=== PATIENT | female | born 1935 | race Caucasian/White ===

== ENCOUNTER 2019-12-06 14:17 | Outpatient (REF) | payer OTHER, SELFPAY ==
--- NOTE | 2019-12-07 11:17 | MHC.AU.P13 ---
Hearing Instrument Fitting- Adult- Binaural Date of Visit: 12/06/19 Hearing Instruments Dispensed: Right Ear: Language And Literature Division Chair: Phonak Model: AUDEO M70-R Serial Number: [id number] Warranty: 02/10/2023 Battery Size: Rechargeable Color: SAND BEIGE Plating Stripper: 2M Type of Dome: LARGE POWER Type of Wax Guard: CERUSHIELD Left Ear: Language And Literature Division Chair: Phonak Model: AUDEO M70-R Serial Number: [id number] Warranty: 02/10/2023 Battery Size: Rechargeable Color: SAND BEIGE Plating Stripper: 2M Type of Dome: LARGE POWER Type of Wax Guard: CERUSHIELD Summary of Fitting: Feedback marketing manager health communications run. Target gain set to 100%. Patient was pleased with the sound of the instruments and did not feel any additional adjustments were needed. Hearing aid care and maintenance were discussed and practiced. Patient was able to change wax guard and place instruments on her ears independently. Patient reports that she has an iPhone, but does not want it paired to her phone at this time. Recommendations: Hearing aid follow-up as needed. Diagnosis Code(s): Primary Diagnosis: H90.3 Bilateral Sensorineural Hearing Loss Services Performed: Hearing Instrument Services: BTE-Binaural- Level 3 Hearing Aid Dispensing: Binaural Dispensing Fee Fitting (Other): Fitting/Orientation/Checking of Hearing Aid Signature: Provider: Abraham Fuentes, [facility]
== END 2019-12-06 14:18 | disposition home or self-care (01) ==
LOC: HO.HAP 14:17
PROVIDERS: PCP Internal Medicine; Visit Provider Internal Medicine
DX: Z46.1 Encounter for fitting and adjustment of hearing aid (principal)
CPT/HCPCS: V5011; V5160; V5261

== ENCOUNTER 2020-10-30 22:50 | Inpatient (IN) | payer OTHER, SELFPAY ==
--- NOTE | ~2020-10-30 | CT_ITS ---
EXAMINATION: CT HEAD WITHOUT CONTRAST CLINICAL INFORMATION: Gait disturbance. COMPARISON: None. TECHNIQUE: Contiguous axial imaging was performed from the skull base to vertex without intravenous administration of contrast. This CT examination was performed using dose optimization techniques as appropriate, variously including the following: *Automated exposure control *Adjustment of mA and/or kV according to patient size (this includes techniques or standardized protocols for targeted exams where dose is matched to indication/reason for exam; i.e. extremities or head) *Use of iterative reconstruction technique DLP: 770 mGy-cm FINDINGS: There is no evidence of acute intracranial hemorrhage or edematous territorial infarction. A few foci of hypoattenuation in the periventricular and deep white matter are consistent with mild microangiopathy. There are chronic bilateral lacunar infarcts. Salgado-white matter differentiation is preserved. Proportional prominence of the ventricles and sulcal spaces. No evidence for obstructive hydrocephalus. No abnormal mass effect or midline shift. No extra-axial fluid collections. No acute soft tissue or osseous abnormalities. There is mild mucoperiosteal thickening of the paranasal sinuses. The mastoids are well aerated. CT/CT head/brain wo con IMPRESSION: No evidence of acute intracranial hemorrhage or edematous territorial infarction.
--- NOTE | ~2020-10-30 | CT_ITS ---
EXAMINATION: CT HEAD WITHOUT CONTRAST CLINICAL INFORMATION: TIA versus stroke. Altered mental status. COMPARISON: CT head October 31, 2020 TECHNIQUE: Contiguous axial imaging was performed from the skull base to vertex without intravenous administration of contrast. Coronal and sagittal reformatted images are performed at the CT scanner. [This CT examination was performed using dose optimization techniques as appropriate, variously including the following: *Automated exposure control *Adjustment of mA and/or kV according to patient size (this includes techniques or standardized protocols for targeted exams where dose is matched to indication/reason for exam; i.e. extremities or head) *Use of iterative reconstruction technique] DLP: 625 mGy-cm. FINDINGS: There is no evidence of acute intracranial hemorrhage or territorial infarction. No abnormal mass-effect or midline shift is seen. Salgado to white matter differentiation is well preserved. No extra-axial fluid collections are identified. There is generalized global volume loss. There is moderate prominence of the ventricles and the sulci . There is mild hypodensity of the periventricular white matter due to chronic small vessel ischemic disease. There are vascular calcifications of the internal carotid arteries bilaterally. There is no osseous abnormality. The mastoid air cells and visualized portions of the paranasal sinuses are well-aerated. CT/CT head/brain wo con IMPRESSION: No acute intracranial pathology.
--- NOTE | 2020-10-31 | ECG_ITS ---
Test Reason : on nortrityline Blood Pressure : / mmHG Vent. Rate : 083 BPM Atrial Rate : 083 BPM P-R Int : 200 ms QRS Dur : 084 ms QT Int : 360 ms P-R-T Axes : 077 -31 075 degrees QTc Int : 423 ms Normal sinus rhythm Left axis deviation Inferior infarct , age undetermined Abnormal ECG No previous ECGs available Referred By: Yaw Esparza Electronically Signed By:GENESIS GARLAND
[2020-10-31 06:00] VITALS: BP 157/68; PULSE 81; RESP 16; TEMP 36.6; O2SAT 96
--- NOTE | 2020-10-31 06:09 | PC.ADMIT ---
Admitted an 84 yrs. old,Pakistani speaking, female per stretcher accompanied by EMT STAFF.Patient is agitated when presented the CV to be signed.Pt said I'm not signing anything .EMT then called her son to talk to his mother and able to convinced her to sign the CV in the ER.Upon admission Pt. is alert and oriented to self and person but not to place. Patient is irritable.patient was initially assessed on 10/23/2020 at [facility] ED.she presented via ambulance due to altered mental status per the visiting nurse.Patient was convinced that her son,who lives in [place], was at her apt.Patient has past medical history of back pain, CKD,STAGE 3,Cystocele,Failed back syndromelumbar, hypercholesteremia,HTN,Osteoporosis and Sacro- iliac pain.Pt, has a bruise on her L. buttocks and L. upper thigh.and slightly red feet.No s/sx of SOB,Lung sounds clear and +bowel sounds x4 quadrants.Pt. denies SI/HI/AH/VH. patient complains of pain on her lower back.Pt. is independent on adl s,cueing in set-up.Pt.has BM yesterday. notified of admission and made orders.Patient has a skin tear on her L.hand slightly bleeding cleansed w/ nss applied w/ dressing and tegaderm.PT.needs 1 assist w/ walker in ambulation,pt. is unsteady at times.
[2020-10-31 07:00] VITALS: BMI 27.6
[2020-10-31 07:11] LABS: MANUAL DIFF FLAG NO
[2020-10-31 07:13] LABS: Basophils Absolute Auto 0.1 X10*3/uL (0.0-0.2); Basophils Percent Auto 0.4 % (0-2); Eosinophils Absolute Auto 0.2 X10*3/uL (0.0-0.4); Eosinophils Percent Auto 1.7 % (0-4); Hematocrit 37.1 % (37-47); Hemoglobin 12.4 g/dl (12.0-16.0); Imm Gran Abs Auto 0.07 X10*3/uL (0.00-0.03); Imm Gran Pct Auto 0.5 % (0.0-0.4); Lymphocytes Percent Auto 15.3 % (20-40); Mean Corpuscular HGB Conc 33.4 g/dl (31.0-35.0); Mean Corpuscular Hemoglobin 30.8 pg (27.0-33.0); Mean Corpuscular Volume 92.3 fL (80-98); Mean Platelet Volume 11.9 fL (9.4-12.3); Monocytes Percent Auto 7.7 % (2-11); Neutrophils Absolute Auto 9.8 X10*3/uL (2.0-8.3); Neutrophils Percent Auto 74.4 % (45-73); Platelet Count 212 X10*3/uL (160-400); Red Blood Count 4.02 X10*6/uL (4.20-5.50); White Blood Count 13.1 X10*3/uL (4.8-10.8)
[2020-10-31 07:32] LABS: Alanine Aminotransferase 14 U/L (0-31); Albumin Level 3.6 g/dL (3.5-5.0); Alkaline Phosphatase 84 U/L (39-117); Anion Gap 15 (12-20); Aspartate Amino Transferase 13 U/L (5-31); Bilirubin Total 0.4 mg/dL (0.0-1.0); Blood Urea Nitrogen 29 mg/dL (9-16); Calcium 9.8 mg/dL (8.4-10.2); Carbon Dioxide 23 mmol/L (22-29); Chloride 104 mmol/L (96-108); Cholesterol 104 mg/dL; Estimated Glomerular Filt Rate 34; Glucose Fasting 97 mg/dL (60-99); HDL Cholesterol 33 mg/dL; LDL Cholesterol Calculated 52 mg/dl; Potassium 4.5 mmol/L (3.3-5.1); Sodium 137 mmol/L (135-145); Total Protein 6.1 g/dL (6.5-8.0); Triglycerides 97 mg/dL
[2020-10-31 08:11] LABS: Folate 5.4 ng/mL (> or = 4.0); Vitamin B12 292 pg/mL (200-900)
[2020-10-31 09:57] VITALS: BP 157/68; PULSE 81; O2SAT 96
[2020-10-31] MEDS: Acetaminophen 325 MG TABLET 650 MG PO (10:17)
[2020-10-31 10:46] VITALS: BP 136/62; PULSE 85
[2020-10-31] MEDS: PARoxetine HCL 40 MG TABLET PO (10:46)
[2020-10-31] MEDS: Magnesium Oxide 400 MG TABLET 800 MG PO (10:46)
[2020-10-31] MEDS: lisinopriL 10 MG TABLET PO (10:46)
[2020-10-31 10:47] VITALS: BP 136/62; PULSE 85
[2020-10-31] MEDS: Metoprolol Succinate ER 50 MG TAB.ER.24H PO (10:47)
[2020-10-31] MEDS: Docusate Sodium 100 MG CAPSULE PO ×2 (10:47→21:03)
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
[2020-10-31] MEDS: TiZANidine HCL 4 MG TABLET PO (11:13)
--- NOTE | 2020-10-31 12:01 | HO.PM.IMCN ---
History of Present Illness Data of Consult Service Date: 10/31/20 Primary Care Provider: Unknown Physician HPI This is an 84-year-old female with history of of hypertension, hyperlipidemia, CKD 3, chronic back pain, recent cerebrovascular accident who presents to the hospital [place] with altered mental status. She was previously admitted to the hospital 10/20 through 10/22 with altered mentation and was convinced that her son had flown all the way out from [place] and was sitting in her apartment talking to her, which is not true. Her work-up revealed an acute right thalamic infarct. She was discharged on aspirin and atorvastatin. Her tizanidine dose was decreased with recommendation to taper over time. She returned the next day to the emergency department as [facility] was concerned about ongoing altered mental status, delusions and possible hallucinations. She became agitated while in the ER and scraped her left forearm on the bed rail. While she was in the ER she was hypertensive but vitals otherwise stable. Psychiatry was consulted and geriatric psychiatry admission was recommended for mood stabilization and she is admitted for further care and is now admitted to [place]. When talking to her, she sounds coherent and only concern about going home and putting on her own clothess. She states that she has chronic back paina and has had at least 5 surgery and uses walker all the time. The following is a list of [facility] Medications Acetaminophen (Tylenol 325 mg oral tablet)??See Instructions??as needed??Pt takes at bedtime??for pain? Aspirin (aspirin 81 mg oral tablet, chewable)??81??Milligram??1??tablet??By Mouth??Daily??for 90??Days? Atorvastatin (atorvastatin 40 mg oral tablet)??1??tab(s)??40??Milligram??By Mouth??Daily at bedtime??for 7??Days? Calcium And Vitamin D Combination (Calcium 600 +D)??1??tab(s)??By Mouth??3 times a day? Cetirizine (cetirizine 10 mg oral tablet)??1??tab(s)??10??Milligram??By Mouth??Daily? Docusate (Dulcolax Stool Softener)??100??Milligram??By Mouth??2 times a day? Lisinopril (lisinopril 20 mg oral tablet)??10??Milligram??0.5??tablet??By Mouth??Daily??for 90??Days? Lorazepam (lorazepam 1 mg oral tablet)??1??tab(s)??1??Milligram??By Mouth??Daily at bedtime? Magnesium Oxide (magnesium oxide 400 mg oral tablet)??2??tab(s)??800??Milligram??By Mouth??Daily at bedtime? Melatonin (Melatonin 5 mg oral tablet)??1??tab(s)??5??Milligram??By Mouth??Daily at bedtime??as needed??for insomnia? Metoprolol (metoprolol 50 mg oral tablet)??50??Milligram??1??tablet??By Mouth??2 times a day? Nortriptyline (nortriptyline 10 mg oral capsule)??4??capsule??40??Milligram??By Mouth??Daily??for 90??Days? Pantoprazole??Daily? Paroxetine (PARoxetine 40 mg oral tablet)??40??Milligram??1??tablet??By Mouth??Daily? Senna (Senna 8.6 mg oral tablet)??17.2??Milligram??2??tab(s)??By Mouth??Daily at bedtime??as needed??for constipation? Tizanidine (tiZANidine 4 mg oral tablet)??4??Milligram??1??tablet??By Mouth??2 times a day??as needed??for 14??Days??Spasm? ? 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 HLD (hyperlipidemia) HTN (hypertension) Osteopathia Pertinent family history: Fther of emphasema and had problem with alcohol no report on mother Surgical History History of hysterectomy S/P appendectomy Social History Advance Directives: No Advance Directives Information Provided: Yes Meds Allergies Allergy/AdvReac Type Severity Reaction Status Date / Time acetaminophen [From Percocet] Allergy Unknown Verified 10/31/20 06:24 baclofen Allergy Unknown Verified 10/31/20 06:24 oxycodone Allergy Unknown Verified 10/31/20 06:23 Active Medications: Current Medications Acetaminophen (Acetaminophen 325 Mg Tablet) 650 mg PO Q6H PRN PRN Reason: Headache/Pain Mild Scale (1-3) Last Admin: 10/31/20 10:17 Dose: 650 mg Documented by: Al Hydroxide/Mg Hydroxide (Magnesium Hydrox/Alum Hydrox 30 Ml Oral.Susp) 30 ml PO Q6H PRN PRN Reason: Heartburn/Nausea Atorvastatin Calcium (Atorvastatin Calcium 40 Mg Tablet) 40 mg PO BEDTIME [facility] Docusate Sodium (Docusate Sodium 100 Mg Capsule) 100 mg PO BID [facility] Last Admin: 10/31/20 10:47 Dose: 100 mg Documented by: Hydroxyzine HCl (Hydroxyzine Hcl 25 Mg Tablet) 25 mg PO BEDTIME PRN PRN Reason: Anxiety Lisinopril (Lisinopril 10 Mg Tablet) 10 mg PO DAILY [facility]; Protocol Last Admin: 10/31/20 10:46 Dose: 10 mg Documented by: Lorazepam (Lorazepam 0.5 Mg Tablet) 0.5 mg PO BEDTIME PRN PRN Reason: Insomnia Lorazepam (Lorazepam 1 Mg Tablet) 1 mg PO BEDTIME [facility] Magnesium Hydroxide (Milk Of Magnesia 30 Ml Oral.Susp) 30 ml PO DAILY PRN PRN Reason: Constipation Magnesium Oxide (Magnesium Oxide 400 Mg Tablet) 800 mg PO DAILY [facility] Last Admin: 10/31/20 10:46 Dose: 800 mg Documented by: Metoprolol Succinate (Metoprolol Succinate Er 50 Mg Tab.Er.24h) 50 mg PO DAILY [facility]; Protocol Last Admin: 10/31/20 10:47 Dose: 50 mg Documented by: Nortriptyline HCl (Nortriptyline Hcl 10 Mg Capsule) 40 mg PO BEDTIME [facility] Paroxetine HCl (Paroxetine Hcl 40 Mg Tablet) 40 mg PO DAILY [facility] Last Admin: 10/31/20 10:46 Dose: 40 mg Documented by: Senna (Sennosides 8.6 Mg Tablet) 8.6 mg PO BEDTIME PRN PRN Reason: Constipation Tizanidine HCl (Tizanidine Hcl 4 Mg Tablet) 4 mg PO BID PRN PRN Reason: Muscle Spasm Last Admin: 10/31/20 11:13 Dose: 4 mg Documented by: Home Medications Medication Instructions Recorded Confirmed Last Taken Type Vitamin D3 600 PO DAILY 10/31/20 Unknown History atorvastatin 40 mg tablet 40 mg PO BEDTIME 10/31/20 10/31/20 Unknown History docusate sodium 100 mg capsule 100 mg PO BID 10/31/20 10/31/20 Unknown History (Colace) lisinopril 10 mg tablet 10 mg PO DAILY 10/31/20 10/31/20 Unknown History lorazepam 1 mg tablet 1 mg PO BEDTIME 10/31/20 10/31/20 Unknown History magnesium oxide 800 mg PO DAILY 10/31/20 10/31/20 Unknown History metoprolol succinate 50 mg 50 mg PO DAILY 10/31/20 10/31/20 Unknown History tablet,extended release 24 hr nortriptyline See Rx Instructions .ROUTE .COMPLEX 10/31/20 10/31/20 Unknown History pantoprazole 40 mg tablet,delayed 40 mg PO DAILY 10/31/20 10/31/20 Unknown History release paroxetine HCl 40 mg tablet 40 mg PO DAILY 10/31/20 10/31/20 Unknown History sennosides 8.6 mg tablet (senna) 8.6 mg PO BEDTIME PRN MDD 2tabs 10/31/20 10/31/20 Unknown History Physical Exam Vital Signs and Narrative: Vital Signs: Last Vital Signs Temp 97.8 F 10/31/20 06:00 Pulse 85 10/31/20 10:47 Resp 16 10/31/20 06:00 BP 136/62 10/31/20 10:47 Pulse Ox 96 10/31/20 09:57 Constitutional: Alert and oriented x3, in no acute distress, anoyed and wants to go home Head: Normocephalic, atraumatic Eyes: EOMI, no pallor or scleral icterus Respiratory: Clear to auscultation b/l without wheezes, rales or rhonchi. No use of accessory muscles. Cardiovascular: Regular rate and rhythm, no rubs, murmurs or gallops. No JVD. Gastrointestinal: Abdomen soft, non-tender, non-distended. Normal bowel sounds. Genitourinary: No costovertebral angle tenderness. No suprapubic tenderness. Extremities: No lower extremity pitting edema. No cyanosis or clubbing. Neurologic: AAOx3, Cranial nerves II-XII grossly intact. Moves all 4 extremities spontaneously. Sensation intact bilaterally.? Skin: left forearm with wrapped with white bandage Musculoskeletal: normal strenght Psychiatric: confrontational, easily angry, agitated but no delusion or hallucination dur my eval Results Labs CBC and Chem 7: 10/31/20 06:52 10/31/20 06:52 Imaging Radiologist's Impressions: Impressions Head CT 10/31/20 10:55 IMPRESSION: No evidence of acute intracranial hemorrhage or edematous territorial infarction. Assessment and Plan (1) HTN (hypertension): Status: Acute (2) HLD (hyperlipidemia): Status: Acute (3) CKD stage 3 due to type 1 diabetes mellitus: Status: Acute 84/F with recent hosptalization for stroke and now admitted to Psych due delusional thought. 1/HTN--She is to be on Lisinopril 20 daily and Metoprolol 50 bid, these should be continue 2/HLD--to continue Lipitor 40 qhs 3/CKD 3--stable 4/Recent CVA--BP control, statin, and Asprin 5/Psychiatric issues, care by Psych 6/Leukocytosis--no sings of infection, likely reactive, monitor
[2020-10-31] MEDS: Aspirin 81 MG TAB.CHEW PO (13:57)
[2020-10-31 18:00] VITALS: BP 134/67; PULSE 86; RESP 18; TEMP 37; O2SAT 98
[2020-10-31] MEDS: LORazepam 1 MG TABLET PO (21:03)
[2020-10-31] MEDS: Nortriptyline HCl 10 MG CAPSULE 40 MG PO (21:03)
[2020-10-31] MEDS: Atorvastatin Calcium 40 MG TABLET PO (21:04)
[2020-11-01] MEDS: Acetaminophen 325 MG TABLET 650 MG PO ×3 (01:00→23:43)
[2020-11-01 06:00] VITALS: BP 100/54; PULSE 102; TEMP 36.6; O2SAT 95
[2020-11-01 07:38] LABS: Appearance Urine CLEAR; Color Urine YELLOW; Glucose Urine UA NEG (NEG); Leukocyte Esterase Urine NEG (NEG); Nitrite Urine NEG (NEG); PH 5.5 (5.0-8.0); Urine Blood NEG (NEG); Urine Ketones NEG (NEG); Urine Protein NEG (NEG-TRACE)
[2020-11-01] MEDS: Aspirin 81 MG TAB.CHEW PO (08:03)
[2020-11-01] MEDS: lisinopriL 10 MG TABLET PO (08:03)
[2020-11-01] MEDS: PARoxetine HCL 40 MG TABLET PO (08:03)
[2020-11-01] MEDS: Magnesium Oxide 400 MG TABLET 800 MG PO (08:03)
[2020-11-01] MEDS: Metoprolol Succinate ER 50 MG TAB.ER.24H PO (08:03)
[2020-11-01] MEDS: Docusate Sodium 100 MG CAPSULE PO ×2 (08:05→19:27)
--- NOTE | 2020-11-01 11:45 | P.PNPSI_ITS ---
Subjective Subjective Date of Service: 11/01/20 Reason For Visit: UNSPECIFIED MENTAL DISORDER Interim History: Pt mostly in bed, reports penitentiary depressed mood, anhedonia, feeling hopeless. She reports intermittent suicidal thoughts but denies any plan or intent to hurt herself. She reports is she kills herself her children would be the most affected by it. She was oriented to month, year, to some extend situation not to place, did know this was psychiatric hospital but thought we we re in [place]. She reports fair sleep and appetite. we discussed concern of two highly anticholinergic antidepressants paxil and nortriptyline. Pt reports taking nortriptyline for headaches. She is not sure if paxil helping. She reports no other medication trials but sure if this is accurate. Medication Compliance: Yes Mental Status Exam Mental Status Exam Narrative: Appearance: in bed, poor hygiene in NAD Behavior: cooperative psychomotor:no agitation or retardation noted Speech:clear, normal rate, soft tone, spontaneous Thought process:mostly linear Thought content:no signs of psychosis, feeling hopeless, depressed Mood: depressed Affect: blunted, congruent SI:passive denies intent and plan HI:none VH/AH:denies Delusions:no overt delusional content reported Insight/judgment:fair x 3 Memory/cog: alert, oriented to month, year, place, knows this is psych hospital, did not know city or name of hospital. Consider doing MOCA once mood improves Diagnostics Vital Signs (24Hr): Vital Signs - 24 hr 10/31/20 18:00 11/01/20 06:00 Temperature 98.6 F 97.8 F Pulse Rate 86 102 H Respiratory Rate 18 Blood Pressure 134/67 100/54 L Pulse Oximetry 98 95 Body Mass Index 27.6 Labs Results: 10/31/20 06:52 10/31/20 06:52 Labs: Laboratory Results - last 48 hr 10/31/20 10/31/20 10/31/20 06:52 06:52 06:52 WBC 13.1 H RBC 4.02 L Hgb 12.4 Hct 37.1 MCV 92.3 MCH 30.8 MCHC 33.4 RDW 13.0 Plt Count 212 MPV 11.9 Immature Gran % (Auto) 0.5 H Neut % (Auto) 74.4 H Lymph % (Auto) 15.3 L [place] % (Auto) 7.7 Eos % (Auto) 1.7 Baso % (Auto) 0.4 Lymph # (Auto) 2.0 [place] # (Auto) 1.0 Eos # (Auto) 0.2 Baso # (Auto) 0.1 Abs Immat Gran (auto) 0.07 H Absolute Neuts (auto) 9.8 H Absolute Nucleated RBC 0.000 Nucleated RBC % (auto) 0.0 Sodium 137 Potassium 4.5 Chloride 104 Carbon Dioxide 23 Anion Gap 15 BUN 29 H Creatinine 1.47 H Estim Creat Clear Calc TNP Estimated GFR 34 Fasting Glucose 97 Calcium 9.8 Total Bilirubin 0.4 AST 13 ALT 14 Alkaline Phosphatase 84 Total Protein 6.1 L Albumin 3.6 Triglycerides 97 Cholesterol 104 LDL Cholesterol, Calc 52 HDL Cholesterol 33 Vitamin B12 292 Folate 5.4 TSH 1.00 Urine Color Urine Appearance Urine pH Ur Specific [place] Urine Protein Urine Glucose (UA) Urine Ketones Urine Blood Urine Nitrite Ur Leukocyte Esterase 11/01/20 07:00 WBC RBC Hgb Hct MCV MCH MCHC RDW Plt Count MPV Immature Gran % (Auto) Neut % (Auto) Lymph % (Auto) [place] % (Auto) Eos % (Auto) Baso % (Auto) Lymph # (Auto) [place] # (Auto) Eos # (Auto) Baso # (Auto) Abs Immat Gran (auto) Absolute Neuts (auto) Absolute Nucleated RBC Nucleated RBC % (auto) Sodium Potassium Chloride Carbon Dioxide Anion Gap BUN Creatinine Estim Creat Clear Calc Estimated GFR Fasting Glucose Calcium Total Bilirubin AST ALT Alkaline Phosphatase Total Protein Albumin Triglycerides Cholesterol LDL Cholesterol, Calc HDL Cholesterol Vitamin B12 Folate TSH Urine Color YELLOW Urine Appearance CLEAR Urine pH 5.5 Ur Specific [place] 1.010 Urine Protein NEG Urine Glucose (UA) NEG Urine Ketones NEG Urine Blood NEG Urine Nitrite NEG Ur Leukocyte Esterase NEG Imaging Radiology Impressions: ITS Impressions Head CT 10/31/20 10:55 IMPRESSION: No evidence of acute intracranial hemorrhage or edematous territorial infarction. Medications Medications Current Medications Acetaminophen (Acetaminophen 325 Mg Tablet) 650 mg PO Q6H PRN PRN Reason: Headache/Pain Mild Scale (1-3) Last Admin: 11/01/20 12:42 Dose: 650 mg Documented by: Al Hydroxide/Mg Hydroxide (Magnesium Hydrox/Alum Hydrox 30 Ml Oral.Susp) 30 ml PO Q6H PRN PRN Reason: Heartburn/Nausea Aspirin (Aspirin 81 Mg Tab.Chew) 81 mg PO DAILY [facility] Last Admin: 11/01/20 08:03 Dose: 81 mg Documented by: Atorvastatin Calcium (Atorvastatin Calcium 40 Mg Tablet) 40 mg PO BEDTIME [facility] Last Admin: 10/31/20 21:04 Dose: 40 mg Documented by: Docusate Sodium (Docusate Sodium 100 Mg Capsule) 100 mg PO BID [facility] Last Admin: 11/01/20 08:05 Dose: 100 mg Documented by: Hydroxyzine HCl (Hydroxyzine Hcl 25 Mg Tablet) 25 mg PO BEDTIME PRN PRN Reason: Anxiety Lisinopril (Lisinopril 10 Mg Tablet) 10 mg PO DAILY [facility]; Protocol Last Admin: 11/01/20 08:03 Dose: 10 mg Documented by: Loperamide HCl (Loperamide Hcl 2 Mg Capsule) 2 mg PO Q4H PRN PRN Reason: Diarrhea Lorazepam (Lorazepam 0.5 Mg Tablet) 0.5 mg PO BEDTIME PRN PRN Reason: Insomnia Lorazepam (Lorazepam 1 Mg Tablet) 1 mg PO BEDTIME [facility] Last Admin: 10/31/20 21:03 Dose: 1 mg Documented by: Magnesium Hydroxide (Milk Of Magnesia 30 Ml Oral.Susp) 30 ml PO DAILY PRN PRN Reason: Constipation Magnesium Oxide (Magnesium Oxide 400 Mg Tablet) 800 mg PO DAILY [facility] Last Admin: 11/01/20 08:03 Dose: 800 mg Documented by: Metoprolol Succinate (Metoprolol Succinate Er 50 Mg Tab.Er.24h) 50 mg PO DAILY [facility]; Protocol Last Admin: 11/01/20 08:03 Dose: 50 mg Documented by: Nortriptyline HCl (Nortriptyline Hcl 10 Mg Capsule) 40 mg PO BEDTIME [facility] Last Admin: 10/31/20 21:03 Dose: 40 mg Documented by: Paroxetine HCl (Paroxetine Hcl 40 Mg Tablet) 40 mg PO DAILY [facility] Last Admin: 11/01/20 08:03 Dose: 40 mg Documented by: Senna (Sennosides 8.6 Mg Tablet) 8.6 mg PO BEDTIME PRN PRN Reason: Constipation Tizanidine HCl (Tizanidine Hcl 4 Mg Tablet) 4 mg PO BID PRN PRN Reason: Muscle Spasm Last Admin: 10/31/20 11:13 Dose: 4 mg Documented by: Allergies Allergies Allergy/AdvReac Type Severity Reaction Status Date / Time acetaminophen [From Percocet] Allergy Unknown Verified 10/31/20 06:24 baclofen Allergy Unknown Verified 10/31/20 06:24 oxycodone Allergy Unknown Verified 10/31/20 06:23 Assessment & Plan Assessment & Plan (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): Status: Acute (2) HTN (hypertension): Status: Acute Code(s): I10 - Essential (primary) hypertension (3) CKD stage 3 due to type 1 diabetes mellitus: Status: Acute Code(s): E10.22 - Type 1 diabetes mellitus with diabetic chronic kidney disease; N18.30 - Chronic kidney disease, stage 3 unspecified (4) Cognitive and neurobehavioral dysfunction: Status: Acute Code(s): F09 - Unspecified mental disorder due to known physiological condition; F07.89 - Other personality and behavioral disorders due to known physiological condition Assessment and Plan: Patient admitted in the context of increased irritability depression and recent paranoia for the past [address] scan with lacunar infarcts . Possible agitation from medication effect and chronic pain possibly to tizanidine. Stroke symptoms a minor with no objective findings and no clear abnormality on the CT scan. The patient symptoms have resolved and she is alert and oriented at this time. No further neurological workup is necessary. Assessment and Plan: PLAN 1. concern about two highly anticholinergic antidepressants- pt does not appear more reliable despatching and receiving clerk, but thinks paxil taking it for one year and thinks is not helping. Nortriptyline for migraines. Pending further collateral by OP provider- Etienne Thompson. will decrease paxil, continue nortriptyline, may adjust dose of nortriptyline or switch to another antidepressant all together. Greater than 50% of the session was spent on counseling and/or coordination of care Reason for contiued inpatient stay Substantial Risk for: inability to function
--- NOTE | 2020-11-01 15:18 | PM.NEUROCN ---
History of Present Illness Data of Consult Service Date: 11/01/20 Primary Care Provider: Unknown Physician HPI Reason for consult: Altered mental status and agitation This is a 84-year-old woman with a history of mood disorder and depression with a history of hypertension, hyperlipidemia, chronic kidney disease. Failed back syndrome with 5 back surgeries in [place] who was admitted to [facility] a couple weeks ago and was found to have a right thalamic infarct. She is now admitted with some agitation and altered mental status Review of Systems Review of Systems: Patient relates a history of hypertension back surgeries. Complains of shoulder and back pain did have a number of falls at home using a walker. No complaints of chest pain or shortness of breath. 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 HLD (hyperlipidemia) HTN (hypertension) Osteopathia Family History Pertinent family history: Fther of emphasema and had problem with alcohol no report on mother Surgical History Surgical History History of hysterectomy S/P appendectomy Social History Social History Household Members: None Housing: House Do you presently have visiting nurse or other home services: Yes Patient Tobacco Use Status: Never used Tobacco Second Hand Smoke Exposure: No Use of substances other than those prescribed or required for medical reasons: No Currently Displaying Signs/Symptoms of Drug Intoxication Withdrawal: No Have you been hit, kicked, punched, or otherwise hurt by someone within the past year? If so, by whom?: No Do you feel safe in your current relationship?: No Current Relationship Is there a partner from a previous relationship who is making you feel unsafe now?: No Are you made to feel afraid or neglected: No Advance Directives: No Advance Directives Information Provided: Yes Do you have thoughts of harming others: None Do you have a plan to hurt others: No Plan Recently lost weight without trying: No Nutrition Risks: No Nutritional Risk Patient : No : No Poor oral hygiene: No service: No Sexual orientation: Straight/Heterosexual Meds Allergies Allergy/AdvReac Type Severity Reaction Status Date / Time acetaminophen [From Percocet] Allergy Unknown Verified 10/31/20 06:24 baclofen Allergy Unknown Verified 10/31/20 06:24 oxycodone Allergy Unknown Verified 10/31/20 06:23 Active Medications: Current Medications Acetaminophen (Acetaminophen 325 Mg Tablet) 650 mg PO Q6H PRN PRN Reason: Headache/Pain Mild Scale (1-3) Last Admin: 11/01/20 12:42 Dose: 650 mg Documented by: Al Hydroxide/Mg Hydroxide (Magnesium Hydrox/Alum Hydrox 30 Ml Oral.Susp) 30 ml PO Q6H PRN PRN Reason: Heartburn/Nausea Aspirin (Aspirin 81 Mg Tab.Chew) 81 mg PO DAILY [facility] Last Admin: 11/01/20 08:03 Dose: 81 mg Documented by: Atorvastatin Calcium (Atorvastatin Calcium 40 Mg Tablet) 40 mg PO BEDTIME [facility] Last Admin: 10/31/20 21:04 Dose: 40 mg Documented by: Docusate Sodium (Docusate Sodium 100 Mg Capsule) 100 mg PO BID [facility] Last Admin: 11/01/20 08:05 Dose: 100 mg Documented by: Hydroxyzine HCl (Hydroxyzine Hcl 25 Mg Tablet) 25 mg PO BEDTIME PRN PRN Reason: Anxiety Lisinopril (Lisinopril 10 Mg Tablet) 10 mg PO DAILY [facility]; Protocol Last Admin: 11/01/20 08:03 Dose: 10 mg Documented by: Loperamide HCl (Loperamide Hcl 2 Mg Capsule) 2 mg PO Q4H PRN PRN Reason: Diarrhea Lorazepam (Lorazepam 0.5 Mg Tablet) 0.5 mg PO BEDTIME PRN PRN Reason: Insomnia Lorazepam (Lorazepam 1 Mg Tablet) 1 mg PO BEDTIME [facility] Last Admin: 10/31/20 21:03 Dose: 1 mg Documented by: Magnesium Hydroxide (Milk Of Magnesia 30 Ml Oral.Susp) 30 ml PO DAILY PRN PRN Reason: Constipation Magnesium Oxide (Magnesium Oxide 400 Mg Tablet) 800 mg PO DAILY [facility] Last Admin: 11/01/20 08:03 Dose: 800 mg Documented by: Metoprolol Succinate (Metoprolol Succinate Er 50 Mg Tab.Er.24h) 50 mg PO DAILY [facility]; Protocol Last Admin: 11/01/20 08:03 Dose: 50 mg Documented by: Nortriptyline HCl (Nortriptyline Hcl 10 Mg Capsule) 40 mg PO BEDTIME [facility] Last Admin: 10/31/20 21:03 Dose: 40 mg Documented by: Paroxetine HCl (Paroxetine Hcl 40 Mg Tablet) 40 mg PO DAILY [facility] Last Admin: 11/01/20 08:03 Dose: 40 mg Documented by: Senna (Sennosides 8.6 Mg Tablet) 8.6 mg PO BEDTIME PRN PRN Reason: Constipation Tizanidine HCl (Tizanidine Hcl 4 Mg Tablet) 4 mg PO BID PRN PRN Reason: Muscle Spasm Last Admin: 10/31/20 11:13 Dose: 4 mg Documented by: Home Medications Medication Instructions Recorded Confirmed Last Taken Type Vitamin D3 600 PO DAILY 10/31/20 Unknown History atorvastatin 40 mg tablet 40 mg PO BEDTIME 10/31/20 10/31/20 Unknown History docusate sodium 100 mg capsule 100 mg PO BID 10/31/20 10/31/20 Unknown History (Colace) lisinopril 10 mg tablet 10 mg PO DAILY 10/31/20 10/31/20 Unknown History lorazepam 1 mg tablet 1 mg PO BEDTIME 10/31/20 10/31/20 Unknown History magnesium oxide 800 mg PO DAILY 10/31/20 10/31/20 Unknown History metoprolol succinate 50 mg 50 mg PO DAILY 10/31/20 10/31/20 Unknown History tablet,extended release 24 hr nortriptyline See Rx Instructions .ROUTE .COMPLEX 10/31/20 10/31/20 Unknown History pantoprazole 40 mg tablet,delayed 40 mg PO DAILY 10/31/20 10/31/20 Unknown History release paroxetine HCl 40 mg tablet 40 mg PO DAILY 10/31/20 10/31/20 Unknown History sennosides 8.6 mg tablet (senna) 8.6 mg PO BEDTIME PRN MDD 2tabs 10/31/20 10/31/20 Unknown History Physical Exam Vital Signs: Vital Signs: Last Vital Signs Temp 97.8 F 11/01/20 06:00 Pulse 102 H 11/01/20 06:00 Resp 18 10/31/20 18:00 BP 100/54 L 11/01/20 06:00 Pulse Ox 95 11/01/20 06:00 Body Mass Index 27.6 Neuro: Other: She is currently pleasant, cooperative, alert and oriented with normal cognittive functions. She's oriented x3. Nonfocal examination with no facial asymmetry drift or limb weakness. Plantar response are flexor. 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 scan with lacunar infarcts . Possible agitation from medication effect and chronic pain possibly to tizanidine. Stroke symptoms a minor with no objective findings and no clear abnormality on the CT scan. The patient symptoms have resolved and she is alert and oriented at this time. No further neurological workup is necessary. Procedures Date of Service Date of Service: 11/01/20
[2020-11-01] MEDS: TiZANidine HCL 4 MG TABLET PO ×2 (16:52→23:43)
[2020-11-01] MEDS: Nortriptyline HCl 10 MG CAPSULE 40 MG PO (19:26)
[2020-11-01] MEDS: Atorvastatin Calcium 40 MG TABLET PO (19:26)
[2020-11-01] MEDS: LORazepam 1 MG TABLET PO (19:27)
[2020-11-02 08:22] VITALS: BP 152/69; PULSE 90; RESP 18; TEMP 36.2; O2SAT 97
[2020-11-02] MEDS: TiZANidine HCL 4 MG TABLET PO (08:22)
[2020-11-02] MEDS: PARoxetine HCL 20 MG TABLET PO (08:22)
[2020-11-02] MEDS: lisinopriL 10 MG TABLET PO (08:22)
[2020-11-02 08:23] VITALS: BP 152/69; PULSE 90
[2020-11-02] MEDS: Metoprolol Succinate ER 50 MG TAB.ER.24H PO (08:23)
[2020-11-02] MEDS: Acetaminophen 325 MG TABLET 650 MG PO ×2 (08:23→15:53)
[2020-11-02] MEDS: Magnesium Oxide 400 MG TABLET 800 MG PO (08:23)
[2020-11-02] MEDS: Aspirin 81 MG TAB.CHEW PO (08:23)
[2020-11-02] MEDS: Docusate Sodium 100 MG CAPSULE PO ×2 (08:23→19:55)
--- NOTE | 2020-11-02 10:22 | HO.PSYCHPN ---
Subjective Subjective Date of Service: 11/02/20 Reason For Visit: UNSPECIFIED MENTAL DISORDER Subjective Notes: Conditional Voluntary Interim History: Patient was seen in rounds today. She is doing a little better, has been more out in the milieu. She continues to have some self dialogue. Complains of back pain. She is also attending more to her ADLs. No complaints or side effects. Eating and sleeping adequately. No changes were made Review of Systems Review of Systems Patient relates a history of hypertension back surgeries. Complains of shoulder and back pain did have a number of falls at home using a walker. No complaints of chest pain or shortness of breath. Yes all other systems are reviewed and are negative Mental Status Exam Mental Status Exam Narrative: Appearance: in bed, poor hygiene in NAD Behavior: cooperative psychomotor:no agitation or retardation noted Speech:clear, normal rate, soft tone, spontaneous Thought process:mostly linear Thought content:no signs of psychosis, feeling hopeless, depressed Mood: depressed Affect: blunted, congruent SI:passive denies intent and plan HI:none VH/AH:denies Delusions:no overt delusional content reported Insight/judgment:fair x 3 Memory/cog: alert, oriented to month, year, place, knows this is [facility], did not know city or name of hospital. Consider doing MOCA once mood improves Diagnostics Vital Signs (24Hr): Vital Signs - 24 hr 11/02/20 08:22 11/02/20 08:23 Pulse Rate 90 90 Blood Pressure 152/69 H 152/69 H Body Mass Index 27.6 Labs Results: 10/31/20 06:52 10/31/20 06:52 Labs: Laboratory Results - last 48 hr 11/01/20 07:00 Urine Color YELLOW Urine Appearance CLEAR Urine pH 5.5 Ur Specific [place] 1.010 Urine Protein NEG Urine Glucose (UA) NEG Urine Ketones NEG Urine Blood NEG Urine Nitrite NEG Ur Leukocyte Esterase NEG Imaging Radiology Impressions: ITS Impressions Head CT 10/31/20 10:55 IMPRESSION: No evidence of acute intracranial hemorrhage or edematous territorial infarction. Medications Medications Current Medications Acetaminophen (Acetaminophen 325 Mg Tablet) 650 mg PO Q6H PRN PRN Reason: Headache/Pain Mild Scale (1-3) Last Admin: 11/02/20 08:23 Dose: 650 mg Documented by: Al Hydroxide/Mg Hydroxide (Magnesium Hydrox/Alum Hydrox 30 Ml Oral.Susp) 30 ml PO Q6H PRN PRN Reason: Heartburn/Nausea Aspirin (Aspirin 81 Mg Tab.Chew) 81 mg PO DAILY [facility] Last Admin: 11/02/20 08:23 Dose: 81 mg Documented by: Atorvastatin Calcium (Atorvastatin Calcium 40 Mg Tablet) 40 mg PO BEDTIME [facility] Last Admin: 11/01/20 19:26 Dose: 40 mg Documented by: Docusate Sodium (Docusate Sodium 100 Mg Capsule) 100 mg PO BID [facility] Last Admin: 11/02/20 08:23 Dose: 100 mg Documented by: Hydroxyzine HCl (Hydroxyzine Hcl 25 Mg Tablet) 25 mg PO BEDTIME PRN PRN Reason: Anxiety Lisinopril (Lisinopril 10 Mg Tablet) 10 mg PO DAILY [facility]; Protocol Last Admin: 11/02/20 08:22 Dose: 10 mg Documented by: Loperamide HCl (Loperamide Hcl 2 Mg Capsule) 2 mg PO Q4H PRN PRN Reason: Diarrhea Lorazepam (Lorazepam 0.5 Mg Tablet) 0.5 mg PO BEDTIME PRN PRN Reason: Insomnia Lorazepam (Lorazepam 1 Mg Tablet) 1 mg PO BEDTIME [facility] Last Admin: 11/01/20 19:27 Dose: 1 mg Documented by: Magnesium Hydroxide (Milk Of Magnesia 30 Ml Oral.Susp) 30 ml PO DAILY PRN PRN Reason: Constipation Magnesium Oxide (Magnesium Oxide 400 Mg Tablet) 800 mg PO DAILY [facility] Last Admin: 11/02/20 08:23 Dose: 800 mg Documented by: Metoprolol Succinate (Metoprolol Succinate Er 50 Mg Tab.Er.24h) 50 mg PO DAILY [facility]; Protocol Last Admin: 11/02/20 08:23 Dose: 50 mg Documented by: Nortriptyline HCl (Nortriptyline Hcl 10 Mg Capsule) 40 mg PO BEDTIME [facility] Last Admin: 11/01/20 19:26 Dose: 40 mg Documented by: Paroxetine HCl (Paroxetine Hcl 20 Mg Tablet) 20 mg PO DAILY [facility] Last Admin: 11/02/20 08:22 Dose: 20 mg Documented by: Senna (Sennosides 8.6 Mg Tablet) 8.6 mg PO BEDTIME PRN PRN Reason: Constipation Tizanidine HCl (Tizanidine Hcl 4 Mg Tablet) 4 mg PO BID PRN PRN Reason: Muscle Spasm Last Admin: 11/02/20 08:22 Dose: 4 mg Documented by: Allergies Allergies Allergy/AdvReac Type Severity Reaction Status Date / Time acetaminophen [From Percocet] Allergy Unknown Verified 10/31/20 06:24 baclofen Allergy Unknown Verified 10/31/20 06:24 oxycodone Allergy Unknown Verified 10/31/20 06:23 Assessment & Plan Assessment & Plan (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): Status: Acute (2) HTN (hypertension): Status: Acute Code(s): I10 - Essential (primary) hypertension (3) CKD stage 3 due to type 1 diabetes mellitus: Status: Acute Code(s): E10.22 - Type 1 diabetes mellitus with diabetic chronic kidney disease; N18.30 - Chronic kidney disease, stage 3 unspecified (4) Cognitive and neurobehavioral dysfunction: Status: Acute Code(s): F09 - Unspecified mental disorder due to known physiological condition; F07.89 - Other personality and behavioral disorders due to known physiological condition Assessment and Plan: Patient admitted in the context of increased irritability depression and recent paranoia for the past [address] scan with lacunar infarcts . Possible agitation from medication effect and chronic pain possibly to tizanidine. Stroke symptoms a minor with no objective findings and no clear abnormality on the CT scan. The patient symptoms have resolved and she is alert and oriented at this time. No further neurological workup is necessary. Assessment and Plan: PLAN Current treatment plan and regimen reviewed and maintained with no changes Greater than 50% of the session was spent on counseling and/or coordination of care Reason for contiued inpatient stay Substantial Risk for: other
[2020-11-02] MEDS: hydrOXYzine HCL 25 MG TABLET PO ×2 (16:51→19:54)
[2020-11-02 18:00] VITALS: BP 160/71; PULSE 81; RESP 18; TEMP 37.1; O2SAT 96
[2020-11-02] MEDS: Magnesium Hydrox/Alum Hydrox 30 ML ORAL.SUSP PO (18:57)
[2020-11-02] MEDS: LORazepam 1 MG TABLET PO (19:54)
[2020-11-02] MEDS: Atorvastatin Calcium 40 MG TABLET PO (19:54)
[2020-11-02] MEDS: Nortriptyline HCl 10 MG CAPSULE 40 MG PO (19:55)
[2020-11-03 07:51] VITALS: BP 172/73; PULSE 80; RESP 16; TEMP 36.4; O2SAT 98
[2020-11-03 08:30] VITALS: BP 172/73; PULSE 80
[2020-11-03] MEDS: PARoxetine HCL 20 MG TABLET PO (08:30)
[2020-11-03] MEDS: Metoprolol Succinate ER 50 MG TAB.ER.24H PO (08:30)
[2020-11-03] MEDS: Docusate Sodium 100 MG CAPSULE PO ×2 (08:30→20:25)
[2020-11-03] MEDS: hydrOXYzine HCL 25 MG TABLET PO ×4 (08:30→23:47)
[2020-11-03] MEDS: Aspirin 81 MG TAB.CHEW PO (08:30)
[2020-11-03] MEDS: Magnesium Oxide 400 MG TABLET 800 MG PO (08:30)
[2020-11-03 08:34] VITALS: BP 172/73; PULSE 80
[2020-11-03] MEDS: lisinopriL 10 MG TABLET PO (08:34)
[2020-11-03] MEDS: TiZANidine HCL 4 MG TABLET PO ×2 (08:55→20:33)
--- NOTE | 2020-11-03 09:33 | P.PNPSI_ITS ---
Subjective Subjective Date of Service: 11/03/20 Reason For Visit: UNSPECIFIED MENTAL DISORDER Subjective Notes: Conditional Voluntary Interim History: Patient was seen and discussed in rounds. Records and treatment plan reviewed. She is doing better, is more cooperative. Using the bathroom more appropriately. Yesterday she did not have an easy day and was tearful and sad. There is notation of allergy to Tylenol however she took it yesterday with no reactions. No changes were made. No complaints or side effects. Eating and sleeping adequately Medication Compliance: Yes Side effects from medications: No Review of Systems Review of Systems Patient relates a history of hypertension back surgeries. Complains of shoulder and back pain did have a number of falls at home using a walker. No complaints of chest pain or shortness of breath. Yes all other systems are reviewed and are negative Diagnostics Vital Signs (24Hr): Vital Signs - 24 hr 11/02/20 18:00 11/03/20 07:51 11/03/20 08:30 Temperature 98.7 F 97.5 F Pulse Rate 81 80 80 Respiratory Rate 18 16 Blood Pressure 160/71 H 172/73 H 172/73 H Pulse Oximetry 96 98 11/03/20 08:34 Temperature Pulse Rate 80 Respiratory Rate Blood Pressure 172/73 H Pulse Oximetry Body Mass Index 27.6 Labs Results: 10/31/20 06:52 10/31/20 06:52 Imaging Radiology Impressions: ITS Impressions Head CT 10/31/20 10:55 IMPRESSION: No evidence of acute intracranial hemorrhage or edematous territorial infarction. Medications Medications Current Medications Acetaminophen (Acetaminophen 325 Mg Tablet) 650 mg PO Q6H PRN PRN Reason: Headache/Pain Mild Scale (1-3) Last Admin: 11/02/20 15:53 Dose: 650 mg Documented by: Al Hydroxide/Mg Hydroxide (Magnesium Hydrox/Alum Hydrox 30 Ml Oral.Susp) 30 ml PO Q6H PRN PRN Reason: Heartburn/Nausea Last Admin: 11/02/20 18:57 Dose: 30 ml Documented by: Aspirin (Aspirin 81 Mg Tab.Chew) 81 mg PO DAILY [facility] Last Admin: 11/03/20 08:30 Dose: 81 mg Documented by: Atorvastatin Calcium (Atorvastatin Calcium 40 Mg Tablet) 40 mg PO BEDTIME [facility] Last Admin: 11/02/20 19:54 Dose: 40 mg Documented by: Docusate Sodium (Docusate Sodium 100 Mg Capsule) 100 mg PO BID [facility] Last Admin: 11/03/20 08:30 Dose: 100 mg Documented by: Hydroxyzine HCl (Hydroxyzine Hcl 25 Mg Tablet) 25 mg PO BEDTIME PRN PRN Reason: Anxiety Hydroxyzine HCl (Hydroxyzine Hcl 25 Mg Tablet) 25 mg PO TID [facility] Last Admin: 11/03/20 08:30 Dose: 25 mg Documented by: Lisinopril (Lisinopril 10 Mg Tablet) 10 mg PO DAILY [facility]; Protocol Last Admin: 11/03/20 08:34 Dose: 10 mg Documented by: Loperamide HCl (Loperamide Hcl 2 Mg Capsule) 2 mg PO Q4H PRN PRN Reason: Diarrhea Lorazepam (Lorazepam 0.5 Mg Tablet) 0.5 mg PO BEDTIME PRN PRN Reason: Insomnia Lorazepam (Lorazepam 1 Mg Tablet) 1 mg PO BEDTIME [facility] Last Admin: 11/02/20 19:54 Dose: 1 mg Documented by: Magnesium Hydroxide (Milk Of Magnesia 30 Ml Oral.Susp) 30 ml PO DAILY PRN PRN Reason: Constipation Magnesium Oxide (Magnesium Oxide 400 Mg Tablet) 800 mg PO DAILY [facility] Last Admin: 11/03/20 08:30 Dose: 800 mg Documented by: Metoprolol Succinate (Metoprolol Succinate Er 50 Mg Tab.Er.24h) 50 mg PO DAILY [facility]; Protocol Last Admin: 11/03/20 08:30 Dose: 50 mg Documented by: Nortriptyline HCl (Nortriptyline Hcl 10 Mg Capsule) 40 mg PO BEDTIME [facility] Last Admin: 11/02/20 19:55 Dose: 40 mg Documented by: Paroxetine HCl (Paroxetine Hcl 20 Mg Tablet) 20 mg PO DAILY [facility] Last Admin: 11/03/20 08:30 Dose: 20 mg Documented by: Senna (Sennosides 8.6 Mg Tablet) 8.6 mg PO BEDTIME PRN PRN Reason: Constipation Tizanidine HCl (Tizanidine Hcl 4 Mg Tablet) 4 mg PO BID PRN PRN Reason: Muscle Spasm Last Admin: 11/03/20 08:55 Dose: 4 mg Documented by: Allergies Allergies Allergy/AdvReac Type Severity Reaction Status Date / Time acetaminophen [From Percocet] Allergy Unknown Verified 10/31/20 06:24 baclofen Allergy Unknown Verified 10/31/20 06:24 oxycodone Allergy Unknown Verified 10/31/20 06:23 Assessment & Plan Assessment & Plan (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): Status: Acute (2) HTN (hypertension): Status: Acute Code(s): I10 - Essential (primary) hypertension (3) CKD stage 3 due to type 1 diabetes mellitus: Status: Acute Code(s): E10.22 - Type 1 diabetes mellitus with diabetic chronic kidney disease; N18.30 - Chronic kidney disease, stage 3 unspecified (4) Cognitive and neurobehavioral dysfunction: Status: Acute Code(s): F09 - Unspecified mental disorder due to known physiological condition; F07.89 - Other personality and behavioral disorders due to known physiological condition Assessment and Plan: Patient admitted in the context of increased irritability depression and recent paranoia for the past [address] scan with lacunar infarcts . Possible agitation from medication effect and chronic pain possibly to tizanidine. Stroke symptoms a minor with no objective findings and no clear abnormality on the CT scan. The patient symptoms have resolved and she is alert and oriented at this time. No further neurological workup is necessary. Continue current regimen and plans Assessment and Plan: PLAN Current treatment plan and regimen reviewed and maintained with no changes Reason for contiued inpatient stay Substantial Risk for: other
[2020-11-03 18:00] VITALS: BP 170/70; PULSE 75; RESP 17; TEMP 36.6; O2SAT 96
[2020-11-03] MEDS: Atorvastatin Calcium 40 MG TABLET PO (20:25)
[2020-11-03] MEDS: LORazepam 1 MG TABLET PO (20:26)
[2020-11-03] MEDS: Nortriptyline HCl 10 MG CAPSULE 40 MG PO (20:26)
[2020-11-04] MEDS: LORazepam 0.5 MG TABLET PO ×2 (00:28→10:03)
[2020-11-04 08:09] VITALS: BP 145/65; PULSE 98; RESP 17; TEMP 36.6; O2SAT 95
[2020-11-04] MEDS: Magnesium Oxide 400 MG TABLET 800 MG PO (08:42)
[2020-11-04] MEDS: PARoxetine HCL 20 MG TABLET PO (08:42)
[2020-11-04] MEDS: Docusate Sodium 100 MG CAPSULE PO ×2 (08:42→19:38)
[2020-11-04 08:43] VITALS: BP 145/65; PULSE 98
[2020-11-04] MEDS: hydrOXYzine HCL 25 MG TABLET PO ×3 (08:43→19:39)
[2020-11-04] MEDS: Metoprolol Succinate ER 50 MG TAB.ER.24H PO (08:43)
[2020-11-04 08:44] VITALS: BP 145/65; PULSE 98
[2020-11-04] MEDS: lisinopriL 5 MG TABLET 15 MG PO (08:44)
[2020-11-04] MEDS: Magnesium Hydrox/Alum Hydrox 30 ML ORAL.SUSP PO (11:02)
--- NOTE | 2020-11-04 15:06 | PC.NURSE ---
Skin assessment completed today. Patient has a skin tear to left dorsal hand. Xeroform applied covered with foam dressing. No other skin issues noted at this time.
--- NOTE | 2020-11-04 15:53 | P.PNPSI_ITS ---
Subjective Subjective Date of Service: 11/04/20 Reason For Visit: UNSPECIFIED MENTAL DISORDER Subjective Notes: 3 Day Interim History: The nursing staff has reported over the weekend has been irritable very confused. Today in the morning she was seen packing her stuff in a paper bag and she was trying to go to the door. She states that she is eating at school and she looked very confused and irritable demanding to get ?her pocketbook again consultations. We tried to explain her that her valuables and belongings have to be stored in a locked. We had a family meeting over soon and we tried to explain her our discharge planning so she will not come back. She signed a 3 day notice. Review of Systems Acute medical concerns: No Medical Review of Systems: unchanged Mental Status Exam Mental Status Exam Patient Appearance: Unkempt Patient Orientation: Person Level of Consciousness: Disoriented Patient Behavior: Guarded and Suspicious Mood Description: Withdrawn and Labile Affect Description: Hostile Patient Cognition Impaired: Yes Ability to Follow Directions: Fair Speech Pattern: Loud Hallucinations: None Delusions: Paranoid Ideation Thought Process: Illogical Thought Content: positive for Tangential Judgement: Poor Diagnostics Vital Signs (24Hr): Vital Signs - 24 hr 11/03/20 18:00 11/04/20 08:09 11/04/20 08:43 Temperature 97.8 F 97.9 F Pulse Rate 75 98 98 Respiratory Rate 17 17 Blood Pressure 170/70 H 145/65 H 145/65 H Pulse Oximetry 96 95 11/04/20 08:44 Temperature Pulse Rate 98 Respiratory Rate Blood Pressure 145/65 H Pulse Oximetry Body Mass Index 27.6 Labs Results: 10/31/20 06:52 10/31/20 06:52 Imaging Radiology Impressions: ITS Impressions Head CT 10/31/20 10:55 IMPRESSION: No evidence of acute intracranial hemorrhage or edematous territorial infarction. Medications Medications Current Medications Acetaminophen (Acetaminophen 325 Mg Tablet) 650 mg PO Q6H PRN PRN Reason: Headache/Pain Mild Scale (1-3) Last Admin: 11/02/20 15:53 Dose: 650 mg Documented by: Al Hydroxide/Mg Hydroxide (Magnesium Hydrox/Alum Hydrox 30 Ml Oral.Susp) 30 ml PO Q6H PRN PRN Reason: Heartburn/Nausea Last Admin: 11/04/20 11:02 Dose: 30 ml Documented by: Aspirin (Aspirin 81 Mg Tab.Chew) 81 mg PO DAILY [facility] Last Admin: 11/04/20 08:48 Dose: Not Given Documented by: Atorvastatin Calcium (Atorvastatin Calcium 40 Mg Tablet) 40 mg PO BEDTIME [facility] Last Admin: 11/03/20 20:25 Dose: 40 mg Documented by: Docusate Sodium (Docusate Sodium 100 Mg Capsule) 100 mg PO BID [facility] Last Admin: 11/04/20 08:42 Dose: 100 mg Documented by: Hydroxyzine HCl (Hydroxyzine Hcl 25 Mg Tablet) 25 mg PO BEDTIME PRN PRN Reason: Anxiety Last Admin: 11/03/20 23:47 Dose: 25 mg Documented by: Hydroxyzine HCl (Hydroxyzine Hcl 25 Mg Tablet) 25 mg PO TID [facility] Last Admin: 11/04/20 14:50 Dose: 25 mg Documented by: Lisinopril (Lisinopril 5 Mg Tablet) 15 mg PO DAILY [facility]; Protocol Last Admin: 11/04/20 08:44 Dose: 15 mg Documented by: Loperamide HCl (Loperamide Hcl 2 Mg Capsule) 2 mg PO Q4H PRN PRN Reason: Diarrhea Lorazepam (Lorazepam 0.5 Mg Tablet) 0.5 mg PO BEDTIME PRN PRN Reason: Insomnia Last Admin: 11/04/20 00:28 Dose: 0.5 mg Documented by: Lorazepam (Lorazepam 1 Mg Tablet) 1 mg PO BEDTIME [facility] Last Admin: 11/03/20 20:26 Dose: 1 mg Documented by: Magnesium Hydroxide (Milk Of Magnesia 30 Ml Oral.Susp) 30 ml PO DAILY PRN PRN Reason: Constipation Magnesium Oxide (Magnesium Oxide 400 Mg Tablet) 800 mg PO DAILY [facility] Last Admin: 11/04/20 08:42 Dose: 800 mg Documented by: Metoprolol Succinate (Metoprolol Succinate Er 50 Mg Tab.Er.24h) 50 mg PO DAILY [facility]; Protocol Last Admin: 11/04/20 08:43 Dose: 50 mg Documented by: Nortriptyline HCl (Nortriptyline Hcl 10 Mg Capsule) 40 mg PO BEDTIME [facility] Last Admin: 11/03/20 20:26 Dose: 40 mg Documented by: Paroxetine HCl (Paroxetine Hcl 20 Mg Tablet) 20 mg PO DAILY [facility] Last Admin: 11/04/20 08:42 Dose: 20 mg Documented by: Risperidone (Risperidone 0.5 Mg Tablet) 0.5 mg PO BID [facility] Senna (Sennosides 8.6 Mg Tablet) 8.6 mg PO BEDTIME PRN PRN Reason: Constipation Tizanidine HCl (Tizanidine Hcl 4 Mg Tablet) 4 mg PO BID PRN PRN Reason: Muscle Spasm Last Admin: 11/03/20 20:33 Dose: 4 mg Documented by: Allergies Allergies Allergy/AdvReac Type Severity Reaction Status Date / Time acetaminophen [From Percocet] Allergy Unknown Verified 10/31/20 06:24 baclofen Allergy Unknown Verified 10/31/20 06:24 oxycodone Allergy Unknown Verified 10/31/20 06:23 Assessment & Plan Assessment & Plan (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): Status: Acute (2) HTN (hypertension): Status: Acute Code(s): I10 - Essential (primary) hypertension (3) CKD stage 3 due to type 1 diabetes mellitus: Status: Acute Code(s): E10.22 - Type 1 diabetes mellitus with diabetic chronic kidney disease; N18.30 - Chronic kidney disease, stage 3 unspecified (4) Cognitive and neurobehavioral dysfunction: Status: Acute Code(s): F09 - Unspecified mental disorder due to known physiological condition; F07.89 - Other personality and behavioral disorders due to known physiological condition Assessment and Plan: Patient admitted in the context of increased irritability depression and recent paranoia for the past [address] scan with lacunar infarcts . Possible agitation from medication effect and chronic pain possibly to tizanidine. Stroke symptoms a minor with no objective findings and no clear abnormality on the CT scan. The patient symptoms have resolved and she is alert and oriented at this time. No further neurological workup is necessary. Continue current regimen and plans Add Risperdal 0.5 mg p.o. b.i.d. as a mood stabilizer Assessment and Plan: PLAN Current treatment plan and regimen reviewed and maintained with no changes Greater than 50% of the session was spent on counseling and/or coordination of care Reason for contiued inpatient stay Substantial Risk for: inability to function and med/psych decompensation
[2020-11-04 18:00] VITALS: BP 156/78; PULSE 100; RESP 20; TEMP 36.4; O2SAT 97
[2020-11-04] MEDS: Atorvastatin Calcium 40 MG TABLET PO (19:38)
[2020-11-04] MEDS: LORazepam 1 MG TABLET PO (19:40)
[2020-11-04] MEDS: risperiDONE 0.5 MG TABLET PO (19:40)
[2020-11-04] MEDS: Nortriptyline HCl 10 MG CAPSULE 40 MG PO (20:55)
[2020-11-05] MEDS: hydrOXYzine HCL 25 MG TABLET PO ×3 (00:56→20:08)
[2020-11-05 06:00] VITALS: BP 130/66; PULSE 90; TEMP 36.5; O2SAT 99
[2020-11-05] MEDS: Acetaminophen 325 MG TABLET 650 MG PO (06:36)
[2020-11-05 09:46] VITALS: BP 130/60; PULSE 90
[2020-11-05] MEDS: lisinopriL 5 MG TABLET 15 MG PO (09:46)
[2020-11-05] MEDS: Metoprolol Succinate ER 50 MG TAB.ER.24H PO (09:46)
[2020-11-05] MEDS: Magnesium Oxide 400 MG TABLET 800 MG PO (09:46)
[2020-11-05] MEDS: risperiDONE 0.5 MG TABLET PO (09:46)
[2020-11-05] MEDS: Docusate Sodium 100 MG CAPSULE PO ×2 (09:46→20:08)
[2020-11-05] MEDS: Aspirin 81 MG TAB.CHEW PO (09:46)
[2020-11-05] MEDS: PARoxetine HCL 20 MG TABLET PO (09:47)
--- NOTE | 2020-11-05 14:58 | P.PNPSI_ITS ---
Subjective Subjective Date of Service: 11/05/20 Reason For Visit: UNSPECIFIED MENTAL DISORDER Subjective Notes: Conditional Voluntary and 3 Day Interim History: The patient has been aggressive towards the staff but not violent. She is verbally abusive is stating that ?I do not have to work with you slimy people?. She has signed a 3 day notice and 8 expires on . On interview, the patient denies new symptoms apparently she is at her baseline. The adoption social worker has contact the the [facility] program and discharge planning was discussed Mental Status Exam Mental Status Exam Patient Appearance: Well Grooomed Patient Orientation: Person Level of Consciousness: Awake Patient Behavior: Suspicious and Aggressive Mood Description: Constricted and Labile Affect Description: Constricted Patient Cognition Impaired: Yes Ability to Follow Directions: Fair Speech Pattern: Clear Hallucinations: None Delusions: Paranoid Ideation Thought Process: Distracted and Slowed Thinking Thought Content: positive for Circumstantial and positive for Preoccupation Judgement: Fair Diagnostics Vital Signs (24Hr): Vital Signs - 24 hr 11/04/20 18:00 11/05/20 06:00 11/05/20 09:46 Temperature 97.5 F 97.7 F Pulse Rate 100 90 90 Respiratory Rate 20 Blood Pressure 156/78 H 130/66 130/60 Pulse Oximetry 97 99 Body Mass Index 27.6 Labs Results: 10/31/20 06:52 10/31/20 06:52 Imaging Radiology Impressions: ITS Impressions Head CT 10/31/20 10:55 IMPRESSION: No evidence of acute intracranial hemorrhage or edematous territorial infarction. Medications Medications Current Medications Acetaminophen (Acetaminophen 325 Mg Tablet) 650 mg PO Q6H PRN PRN Reason: Headache/Pain Mild Scale (1-3) Last Admin: 11/05/20 06:36 Dose: 650 mg Documented by: Al Hydroxide/Mg Hydroxide (Magnesium Hydrox/Alum Hydrox 30 Ml Oral.Susp) 30 ml PO Q6H PRN PRN Reason: Heartburn/Nausea Last Admin: 11/04/20 11:02 Dose: 30 ml Documented by: Aspirin (Aspirin 81 Mg Tab.Chew) 81 mg PO DAILY [facility] Last Admin: 11/05/20 09:46 Dose: 81 mg Documented by: Atorvastatin Calcium (Atorvastatin Calcium 40 Mg Tablet) 40 mg PO BEDTIME [facility] Last Admin: 11/04/20 19:38 Dose: 40 mg Documented by: Docusate Sodium (Docusate Sodium 100 Mg Capsule) 100 mg PO BID [facility] Last Admin: 11/05/20 09:46 Dose: 100 mg Documented by: Hydroxyzine HCl (Hydroxyzine Hcl 25 Mg Tablet) 25 mg PO BEDTIME PRN PRN Reason: Anxiety Last Admin: 11/05/20 00:56 Dose: 25 mg Documented by: Hydroxyzine HCl (Hydroxyzine Hcl 25 Mg Tablet) 25 mg PO TID [facility] Last Admin: 11/05/20 09:46 Dose: 25 mg Documented by: Lisinopril (Lisinopril 5 Mg Tablet) 15 mg PO DAILY [facility]; Protocol Last Admin: 11/05/20 09:46 Dose: 15 mg Documented by: Loperamide HCl (Loperamide Hcl 2 Mg Capsule) 2 mg PO Q4H PRN PRN Reason: Diarrhea Lorazepam (Lorazepam 1 Mg Tablet) 1 mg PO BEDTIME [facility] Last Admin: 11/04/20 19:40 Dose: 1 mg Documented by: Magnesium Hydroxide (Milk Of Magnesia 30 Ml Oral.Susp) 30 ml PO DAILY PRN PRN Reason: Constipation Magnesium Oxide (Magnesium Oxide 400 Mg Tablet) 800 mg PO DAILY [facility] Last Admin: 11/05/20 09:46 Dose: 800 mg Documented by: Metoprolol Succinate (Metoprolol Succinate Er 50 Mg Tab.Er.24h) 50 mg PO DAILY [facility]; Protocol Last Admin: 11/05/20 09:46 Dose: 50 mg Documented by: Nortriptyline HCl (Nortriptyline Hcl 10 Mg Capsule) 40 mg PO BEDTIME [facility] Last Admin: 11/04/20 20:55 Dose: 40 mg Documented by: Paroxetine HCl (Paroxetine Hcl 20 Mg Tablet) 20 mg PO DAILY [facility] Last Admin: 11/05/20 09:47 Dose: 20 mg Documented by: Risperidone (Risperidone 0.5 Mg Tablet) 0.5 mg PO BID [facility] Last Admin: 11/05/20 09:46 Dose: 0.5 mg Documented by: Senna (Sennosides 8.6 Mg Tablet) 8.6 mg PO BEDTIME PRN PRN Reason: Constipation Tizanidine HCl (Tizanidine Hcl 4 Mg Tablet) 4 mg PO BID PRN PRN Reason: Muscle Spasm Last Admin: 11/03/20 20:33 Dose: 4 mg Documented by: Allergies Allergies Allergy/AdvReac Type Severity Reaction Status Date / Time acetaminophen [From Percocet] Allergy Unknown Verified 10/31/20 06:24 baclofen Allergy Unknown Verified 10/31/20 06:24 oxycodone Allergy Unknown Verified 10/31/20 06:23 Assessment & Plan Assessment & Plan (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): Status: Acute (2) HTN (hypertension): Status: Acute Code(s): I10 - Essential (primary) hypertension (3) CKD stage 3 due to type 1 diabetes mellitus: Status: Acute Code(s): E10.22 - Type 1 diabetes mellitus with diabetic chronic kidney disease; N18.30 - Chronic kidney disease, stage 3 unspecified (4) Cognitive and neurobehavioral dysfunction: Status: Acute Code(s): F09 - Unspecified mental disorder due to known physiological condition; F07.89 - Other personality and behavioral disorders due to known physiological condition Assessment and Plan: Patient admitted in the context of increased irritability depression and recent paranoia for the past [address] scan with lacunar infarcts . Possible agitation from medication effect and chronic pain possibly to tizanidine. Strok e symptoms a minor with no objective findings and no clear abnormality on the CT scan. The patient symptoms have resolved and she is alert and oriented at this time. No further neurological workup is necessary. Continue current regimen and plans Add Risperdal 0.5 mg p.o. b.i.d. as a mood stabilizer Assessment and Plan: PLAN Current treatment plan and regimen reviewed and maintained with no changes Greater than 50% of the session was spent on counseling and/or coordination of care Reason for contiued inpatient stay Substantial Risk for: rapid decompensation
[2020-11-05] MEDS: Nortriptyline HCl 10 MG CAPSULE 40 MG PO (20:07)
[2020-11-05] MEDS: risperiDONE 1 MG TABLET PO (20:08)
[2020-11-05] MEDS: LORazepam 1 MG TABLET PO (20:08)
[2020-11-05] MEDS: Atorvastatin Calcium 40 MG TABLET PO (20:08)
[2020-11-05 21:02] VITALS: BP 129/60; PULSE 80; RESP 18; TEMP 36.6; O2SAT 98
[2020-11-06] MEDS: hydrOXYzine HCL 25 MG TABLET PO ×2 (00:48→09:49)
[2020-11-06 09:44] VITALS: BP 141/65; PULSE 90; RESP 16; TEMP 36.3; O2SAT 100
[2020-11-06 09:47] VITALS: BP 141/65; PULSE 90
[2020-11-06] MEDS: lisinopriL 5 MG TABLET 15 MG PO (09:47)
[2020-11-06 09:48] VITALS: BP 141/65; PULSE 90
[2020-11-06] MEDS: Magnesium Oxide 400 MG TABLET 800 MG PO (09:48)
[2020-11-06] MEDS: Metoprolol Succinate ER 50 MG TAB.ER.24H PO (09:48)
[2020-11-06] MEDS: PARoxetine HCL 20 MG TABLET PO (09:48)
[2020-11-06] MEDS: Aspirin 81 MG TAB.CHEW PO (09:48)
[2020-11-06] MEDS: Docusate Sodium 100 MG CAPSULE PO (09:48)
[2020-11-06] MEDS: risperiDONE 0.5 MG TABLET PO (09:48)
[2020-11-06 10:42] VITALS: BP 129/63; PULSE 90; O2SAT 97
--- NOTE | 2020-11-06 10:50 | P.PNPSI_ITS ---
Subjective Subjective Date of Service: 11/06/20 Reason For Visit: UNSPECIFIED MENTAL DISORDER Subjective Notes: Conditional Voluntary Interim History: The nursing staff reported that the patient has been less irritable in the afternoon. She slept poorly and today in the morning she was falling sleep. We tried to do a [place] test in the morning but she was sleeping in the middle of the test. She was unable to the 1st part of the [place] with executive functions assessment. On interview, the patient was irritable but no new symptoms, no safety concerns Mental Status Exam Mental Status Exam Patient Appearance: Well Grooomed Patient Orientation: Person Level of Consciousness: Awake Patient Behavior: Guarded, Passive, Suspicious and Belligerent Mood Description: Constricted Affect Description: Labile Patient Cognition Impaired: Yes Ability to Follow Directions: Fair Speech Pattern: Clear Delusions: Not Present Thought Content: positive for Flight of Ideas Judgement: Poor Diagnostics Vital Signs (24Hr): Vital Signs - 24 hr 11/05/20 21:02 11/06/20 09:44 11/06/20 09:47 Temperature 97.9 F 97.3 F Pulse Rate 80 90 90 Respiratory Rate 18 16 Blood Pressure 129/60 141/65 H 141/65 H Pulse Oximetry 98 100 11/06/20 09:48 11/06/20 10:42 Temperature Pulse Rate 90 90 Respiratory Rate Blood Pressure 141/65 H 129/63 Pulse Oximetry 97 Body Mass Index 27.6 Labs Results: 10/31/20 06:52 10/31/20 06:52 Imaging Radiology Impressions: ITS Impressions Head CT 10/31/20 10:55 IMPRESSION: No evidence of acute intracranial hemorrhage or edematous territorial infarction. Medications Medications Current Medications Acetaminophen (Acetaminophen 325 Mg Tablet) 650 mg PO Q6H PRN PRN Reason: Headache/Pain Mild Scale (1-3) Last Admin: 11/05/20 06:36 Dose: 650 mg Documented by: Al Hydroxide/Mg Hydroxide (Magnesium Hydrox/Alum Hydrox 30 Ml Oral.Susp) 30 ml PO Q6H PRN PRN Reason: Heartburn/Nausea Last Admin: 11/04/20 11:02 Dose: 30 ml Documented by: Aspirin (Aspirin 81 Mg Tab.Chew) 81 mg PO DAILY [facility] Last Admin: 11/06/20 09:48 Dose: 81 mg Documented by: Atorvastatin Calcium (Atorvastatin Calcium 40 Mg Tablet) 40 mg PO BEDTIME [facility] Last Admin: 11/05/20 20:08 Dose: 40 mg Documented by: Docusate Sodium (Docusate Sodium 100 Mg Capsule) 100 mg PO BID [facility] Last Admin: 11/06/20 09:48 Dose: 100 mg Documented by: Hydroxyzine HCl (Hydroxyzine Hcl 25 Mg Tablet) 25 mg PO BEDTIME PRN PRN Reason: Anxiety Last Admin: 11/06/20 00:48 Dose: 25 mg Documented by: Hydroxyzine HCl (Hydroxyzine Hcl 25 Mg Tablet) 25 mg PO TID [facility] Last Admin: 11/06/20 09:49 Dose: 25 mg Documented by: Lisinopril (Lisinopril 5 Mg Tablet) 15 mg PO DAILY [facility]; Protocol Last Admin: 11/06/20 09:47 Dose: 15 mg Documented by: Loperamide HCl (Loperamide Hcl 2 Mg Capsule) 2 mg PO Q4H PRN PRN Reason: Diarrhea Magnesium Hydroxide (Milk Of Magnesia 30 Ml Oral.Susp) 30 ml PO DAILY PRN PRN Reason: Constipation Magnesium Oxide (Magnesium Oxide 400 Mg Tablet) 800 mg PO DAILY [facility] Last Admin: 11/06/20 09:48 Dose: 800 mg Documented by: Metoprolol Succinate (Metoprolol Succinate Er 50 Mg Tab.Er.24h) 50 mg PO DAILY [facility]; Protocol Last Admin: 11/06/20 09:48 Dose: 50 mg Documented by: Nortriptyline HCl (Nortriptyline Hcl 10 Mg Capsule) 40 mg PO BEDTIME [facility] Last Admin: 11/05/20 20:07 Dose: 40 mg Documented by: Paroxetine HCl (Paroxetine Hcl 20 Mg Tablet) 20 mg PO DAILY [facility] Last Admin: 11/06/20 09:48 Dose: 20 mg Documented by: Risperidone (Risperidone 0.5 Mg Tablet) 0.5 mg PO DAILY [facility] Last Admin: 11/06/20 09:48 Dose: 0.5 mg Documented by: Risperidone (Risperidone 1 Mg Tablet) 1 mg PO BEDTIME [facility] Last Admin: 11/05/20 20:08 Dose: 1 mg Documented by: Senna (Sennosides 8.6 Mg Tablet) 8.6 mg PO BEDTIME PRN PRN Reason: Constipation Tizanidine HCl (Tizanidine Hcl 4 Mg Tablet) 4 mg PO BID PRN PRN Reason: Muscle Spasm Last Admin: 11/03/20 20:33 Dose: 4 mg Documented by: Allergies Allergies Allergy/AdvReac Type Severity Reaction Status Date / Time acetaminophen [From Percocet] Allergy Unknown Verified 10/31/20 06:24 baclofen Allergy Unknown Verified 10/31/20 06:24 oxycodone Allergy Unknown Verified 10/31/20 06:23 Assessment & Plan Assessment & Plan (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): Status: Acute (2) HTN (hypertension): Status: Acute Code(s): I10 - Essential (primary) hypertension (3) CKD stage 3 due to type 1 diabetes mellitus: Status: Acute Code(s): E10.22 - Type 1 diabetes mellitus with diabetic chronic kidney disease; N18.30 - Chronic kidney disease, stage 3 unspecified (4) Cognitive and neurobehavioral dysfunction: Status: Acute Code(s): F09 - Unspecified mental disorder due to known physiological condition; F07.89 - Other personality and behavioral disorders due to known physiological condition Assessment and Plan: Patient admitted in the context of increased irritability depression and recent paranoia for the past [address] scan with lacunar infarcts . Possible agitation from medication effect and chronic pain possibly to tizanidine. Stroke symptoms a minor with no objective findings and no clear abnormality on the CT scan. The patient symptoms have resolved and she is alert and oriented at this time. No further neurological workup is necessary. Continue current regimen and plans Increase Risperdal up to 1 mg mg p.o. b.i.d. as a mood stabilizer Assessment and Plan: PLAN Current treatment plan and regimen reviewed and maintained with no changes Greater than 50% of the session was spent on counseling and/or coordination of care Reason for contiued inpatient stay Substantial Risk for: inability to function, rapid decompensation and med/psych decompensation
--- NOTE | 2020-11-06 16:52 | PC.NURSE ---
Patient was watching TV in the [facility]. Escorted to sensory room by OT where she was going to be conducting a MOCA. Upon initiation of exam OT noticed an abrupt change in mental status. Patient unable to speak in complete sentences, replies were nonsensical. When asked what is your name she replied Shawna Zerve . When asked where are you she replied I don't know . [employer] called, team responded immediately. Patient was examined by a nurse practitioner and transferred IMC via a wheel chair by nursing drilling supervisor.
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
[2020-11-06 17:32] VITALS: BP 163/74; PULSE 80; RESP 16; TEMP 36.6; O2SAT 97
== END 2020-11-06 16:56 | disposition short-term general hospital (02) | DRG 884 ==
PROVIDERS: Admitting Provider Psychiatry & Neurology Psychiatry; Visit Provider Psychiatry & Neurology Psychiatry
DX: F06.32 Mood disorder due to known physiological condition with major depressive-like episode (principal); R45.851 Suicidal ideations; I12.9 Hypertensive chronic kidney disease with stage 1 through stage 4 chronic kidney disease, or unspecified chronic kidney disease; E10.22 Type 1 diabetes mellitus with diabetic chronic kidney disease; D72.829 Elevated white blood cell count, unspecified; M96.1 Postlaminectomy syndrome, not elsewhere classified; I69.815 Cognitive social or emotional deficit following other cerebrovascular disease; N18.30 Chronic kidney disease, stage 3 unspecified; E78.5 Hyperlipidemia, unspecified; Z87.891 Personal history of nicotine dependence; Z88.5 Allergy status to narcotic agent; Z88.6 Allergy status to analgesic agent; Z79.82 Long term (current) use of aspirin; Z79.899 Other long term (current) drug therapy
CPT/HCPCS: 36415; 70450; 80053; 80061; 81003; 82607; 82746; 84443; 85025; 93005; 97162

== ENCOUNTER 2020-11-06 17:00 | Inpatient (IN) | payer OTHER, SELFPAY ==
--- NOTE | ~2020-11-06 | MR_ITS ---
EXAMINATION: MRI BRAIN WITHOUT CONTRAST CLINICAL INFORMATION: Altered mental status. Lethargy. COMPARISON: CT scan of the head 11/06/2020. TECHNIQUE: Multiplanar MR imaging of the brain was performed without contrast. FINDINGS: There is a focus of T2 signal hyperintensity involving the right frontal centrum semiovale with no clear evidence of corresponding low ADC values. Findings are therefore suspected represent a subacute white matter infarct. This finding is superimposed upon numerous chronic small vessel ischemic changes throughout the periventricular white matter and jackson. No pathological magnetic susceptibility artifact. Intracranial vascular flow voids are maintained. There is no intracranial mass effect or midline shift. No abnormal extra-axial collection. Lateral and third ventricles are normal. No hydrocephalus. Midline structures including the cervicomedullary junction are normal. No acute bone marrow signal changes. There is a small right mastoid tip effusion. Mild paranasal sinus mucosal thickening within ethmoid air cells. Globes and orbits are symmetric. MR/MR head/brain wo con IMPRESSION: There is a tiny subacute white matter infarct within the right frontal centrum semiovale and numerous chronic small vessel ischemic changes throughout the periventricular white matter jackson. No acute hemorrhage. No intracranial mass effect or hydrocephalus.
--- NOTE | 2020-11-06 17:28 | PM.IMHP ---
History of Present Illness Date of Service: 11/06/20 <Didi Badillo NP - Last Filed: 11/06/20 17:38> Chief Complaint: Confusion <Didi Badillo NP - Last Filed: 11/06/20 17:38> 84-year-old woman that was admitted to Geriatric Psychiatry and suddenly developed acute confusion transferred to intermediate care for possible TIA. Patient is normally alert and oriented x3 and had been working with Behavioral Health staff throughout the day and suddenly this evening developed confusion, was unable to say her full name, did not know where she was and seemed to developed a hand tremor. The patient denied any chest pain, shortness of breath, nausea, vomiting, recent injury. The staff denied any injury or fall. She was recently started on some new psychiatric medications. Her vital signs were stable with no hypoxia or severe hypotension. It was agreed that patient would be transferred to medical floor on observation and worked up for possible TIA. <Didi Badillo NP - Last Filed: 11/06/20 17:38> Review of Systems Review of Systems: Denies any recent fever chills or decrease in appetite respiratory denies any shortness of breath coverage production cardiovascular Denies chest pain gastrointestinal denies any dysphagia abdominal pain nausea vomiting or diarrhea genitourinary denies any dysuria frequency or hematuria musculoskeletal denies any joint pain or swelling neuropsych denies any weakness or seizures all other systems reviewed are negative <Didi Badillo NP - Last Filed: 11/06/20 17:38> [facility] Medical History: Medical History Back pain with history of spinal surgery CKD stage 3 due to type 1 diabetes mellitus Failed back syndrome HLD (hyperlipidemia) HTN (hypertension) Osteopathia <Didi Badillo NP - Last Filed: 11/06/20 17:38> Pertinent family history: no cardiac disease <Didi Badillo NP - Last Filed: 11/06/20 17:38> Surgical History: Surgical History History of hysterectomy S/P appendectomy <Didi Badillo NP - Last Filed: 11/06/20 17:38> Social History: Social History Household Members: None Housing: Apartment Do you presently have visiting nurse or other home services: No Patient Tobacco Use Status: Former Tobacco user Second Hand Smoke Exposure: No Use of substances other than those prescribed or required for medical reasons: No Currently Displaying Signs/Symptoms of Drug Intoxication Withdrawal: No Have you been hit, kicked, punched, or otherwise hurt by someone within the past year? If so, by whom?: No Do you feel safe in your current relationship?: No Current Relationship Is there a partner from a previous relationship who is making you feel unsafe now?: No Are you made to feel afraid or neglected: No Advance Directives: No Advance Directives Information Provided: No Do you have thoughts of harming others: None Do you have a plan to hurt others: No Plan Recently lost weight without trying: Unsure service: No Current occupational status: retired Sexual orientation: Straight/Heterosexual <Didi Badillo NP - Last Filed: 11/06/20 17:38> Meds Allergies/Adverse reactions: Allergies Allergy/AdvReac Type Severity Reaction Status Date / Time acetaminophen [From Percocet] Allergy Unknown Verified 10/31/20 06:24 baclofen Allergy Unknown Verified 10/31/20 06:24 oxycodone Allergy Unknown Verified 10/31/20 06:23 <Didi Badillo NP - Last Filed: 11/06/20 17:38> Active Medications: Current Medications Acetaminophen (Acetaminophen 325 Mg Tablet) 650 mg PO Q6H PRN PRN Reason: Headache/Pain Mild Scale (1-3) Al Hydroxide/Mg Hydroxide (Magnesium Hydrox/Alum Hydrox 30 Ml Oral.Susp) 30 ml PO Q6H PRN PRN Reason: Heartburn/Nausea Aspirin (Aspirin 81 Mg Tab.Chew) 81 mg PO DAILY [facility] Atorvastatin Calcium (Atorvastatin Calcium 40 Mg Tablet) 40 mg PO BEDTIME [facility] Docusate Sodium (Docusate Sodium 100 Mg Capsule) 100 mg PO BID [facility] Hydroxyzine HCl (Hydroxyzine Hcl 25 Mg Tablet) 25 mg PO BEDTIME PRN PRN Reason: Anxiety Lisinopril (Lisinopril 5 Mg Tablet) 15 mg PO DAILY [facility]; Protocol Loperamide HCl (Loperamide Hcl 2 Mg Capsule) 2 mg PO Q4H PRN PRN Reason: Diarrhea Magnesium Hydroxide (Milk Of Magnesia 30 Ml Oral.Susp) 30 ml PO DAILY PRN PRN Reason: Constipation Magnesium Oxide (Magnesium Oxide 400 Mg Tablet) 800 mg PO DAILY [facility] Metoprolol Succinate (Metoprolol Succinate Er 50 Mg Tab.Er.24h) 50 mg PO DAILY [facility]; Protocol Non-Formulary Medication (Pantoprazole) 40 mg PO DAILY [facility] Nortriptyline HCl (Nortriptyline Hcl 10 Mg Capsule) 40 mg PO BEDTIME [facility] Paroxetine HCl (Paroxetine Hcl 20 Mg Tablet) 20 mg PO DAILY [facility] Risperidone (Risperidone 1 Mg Tablet) 1 mg PO BEDTIME [facility] Senna (Sennosides 8.6 Mg Tablet) 8.6 mg PO BEDTIME PRN PRN Reason: Constipation Tizanidine HCl (Tizanidine Hcl 4 Mg Tablet) 4 mg PO BID PRN PRN Reason: Muscle Spasm <Didi Badillo NP - Last Filed: 11/06/20 17:38> Home medications: Home Medications Medication Instructions Recorded Confirmed Last Taken Type atorvastatin 40 mg tablet 40 mg PO BEDTIME 10/31/20 11/06/20 Unknown History docusate sodium 100 mg capsule 100 mg PO BID 10/31/20 11/06/20 Unknown History (Colace) lisinopril 10 mg tablet 10 mg PO DAILY 10/31/20 11/06/20 Unknown History lorazepam 1 mg tablet 1 mg PO BEDTIME 10/31/20 11/06/20 Unknown History magnesium oxide 800 mg PO DAILY 10/31/20 11/06/20 Unknown History metoprolol succinate 50 mg 50 mg PO BID 10/31/20 11/06/20 Unknown History tablet,extended release 24 hr pantoprazole 40 mg tablet,delayed 40 mg PO DAILY 10/31/20 11/06/20 Unknown History release paroxetine HCl 40 mg tablet 40 mg PO DAILY 10/31/20 11/06/20 Unknown History sennosides 8.6 mg tablet (senna) 17.2 mg PO BEDTIME PRN 10/31/20 11/06/20 Unknown History aspirin 81 mg chewable tablet 81 mg PO DAILY 11/06/20 11/06/20 Unknown History calcium carbonate 600 mg (1,500 1 tab PO TID 11/06/20 11/06/20 Unknown History mg)-vitamin D3 400 unit tablet (Calcium 600 + D(3)) cetirizine 10 mg tablet 10 mg PO DAILY 11/06/20 11/06/20 Unknown History melatonin 5 mg tablet 5 mg PO BEDTIME PRN 11/06/20 11/06/20 Unknown History nortriptyline 10 mg capsule 40 mg PO DAILY 11/06/20 11/06/20 Unknown History tizanidine 4 mg tablet 4 mg PO BID PRN 11/06/20 11/06/20 Unknown History <Didi Badillo NP - Last Filed: 11/06/20 17:38> Physical Exam Vital Signs and Narrative: Appearing in no acute distress head is normocephalic atraumatic eyes pupils are PERRLA sclera is anicteric mouth throat mucous membranes are intact and moist neck is supple no lymphadenopathy, no JVD noted lung sounds are clear to auscultation heart regular rate rhythm, clear S1, S2 positive bowel sounds, abdomen is soft, nontender neuro no focal deficits, forgetfulness and mildly slowed speech <Didi Badillo NP - Last Filed: 11/06/20 17:38> Results Labs CBC and Chem 7: : 11/08/20 08:04 11/08/20 08:04 <Didi Badillo NP - Last Filed: 11/06/20 17:38> Assessment and Plan (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): Status: Acute <Didi Badillo NP - Last Filed: 11/06/20 17:38> (2) HTN (hypertension): Status: Acute <Didi Badillo NP - Last Filed: 11/06/20 17:38> (3) HLD (hyperlipidemia): Status: Acute <Didi Badillo NP - Last Filed: 11/06/20 17:38> (4) CKD stage 3 due to type 1 diabetes mellitus: Status: Acute <Didi Badillo NP - Last Filed: 11/06/20 17:38> (5) Acute encephalopathy: Status: Acute <Didi Badillo NP - Last Filed: 11/06/20 17:38> 84-year-old woman transferred from geriatric psych to intermediate care for acute encephalopathy with question of possible TIA with history of lacunar strokes in the past. Acute encephalopathy. Possibly secondary to new psychiatric medication versus TIA No stroke on brain CT Neurology consultation to determine any further neurological follow-up Neuro checks Monitor on telemetry Obtain baseline labs CBC and BMP psych consult for medication management Hypertension Stable CKD BMP pending Depression Continue medications Psychiatric team to follow Disposition once medically stable may be discharged back to geriatric psych DVT prophylaxis with heparin Attending Dr. Carlson Full code <Didi Badillo NP - Last Filed: 11/06/20 17:38> 84-year-old woman transferred from geriatric psych to intermediate care for acute encephalopathy with question of possible TIA with history of lacunar strokes in the past. Acute encephalopathy. Possibly secondary to new psychiatric medication versus TIA No stroke on brain CT Neurology consultation to determine any further neurological follow-up Neuro checks Monitor on telemetry Obtain baseline labs CBC and BMP psych consult for medication management Hypertension Stable CKD BMP pending Depression Continue medications Psychiatric team to follow Disposition once medically stable may be discharged back to geriatric psych DVT prophylaxis with heparin Attending Dr. Carlson Full code I saw patient with [facility] and discussed finding with [facility] and Elizabeth with above <Clarence Carlson MD - Last Filed: 11/08/20 15:20> Quality Stroke Does the patient have a stroke diagnosis?: No <Didi Badillo NP - Last Filed: 11/06/20 17:38> VTE Prior VTE?: No <Didi Badillo NP - Last Filed: 11/06/20 17:38> VTE Risk Level:: Medical - moderate - high <Didi Badillo NP - Last Filed: 11/06/20 17:38> VTE Device Contraindication: Treatment Not Indicated <Didi Badillo NP - Last Filed: 11/06/20 17:38> VTE Drug Contraindication: N/A - Med Ordered <Didi Badillo NP - Last Filed: 11/06/20 17:38>
[2020-11-06 18:45] VITALS: BMI 25.7
--- NOTE | 2020-11-06 19:19 | PHA.MEDREC ---
Pharmacy Consult ? Medication Reconciliation Pharmacy has completed the medication reconciliation. There are no remarkable issues for provider attention. Patient had a discharge summary from [facility]. Rosa Peters, GiovanaD
[2020-11-06 19:43] VITALS: BP 120/58; PULSE 74; RESP 16; TEMP 36.1; O2SAT 96
[2020-11-06] MEDS: Atorvastatin Calcium 40 MG TABLET PO (21:16)
[2020-11-06] MEDS: Nortriptyline HCl 10 MG CAPSULE 40 MG PO (21:16)
[2020-11-06] MEDS: Heparin Sodium,Porcine 5,000 UNIT/ML VIAL 5000 UNIT SUBCUT (21:16)
[2020-11-06] MEDS: Docusate Sodium 100 MG CAPSULE PO (21:16)
[2020-11-06] MEDS: risperiDONE 1 MG TABLET PO (21:16)
[2020-11-06 23:35] VITALS: BP 160/88; PULSE 80; RESP 18; TEMP 36.6; O2SAT 94
[2020-11-07] VITALS (9 sets, daily range): BP systolic 104–153; BP diastolic 45–69; PULSE 65–83; RESP 16–20; TEMP 36.4–37; O2SAT 95–97
[2020-11-07] MEDS: Omeprazole 20 MG CAPSULE.DR PO (05:37)
[2020-11-07 07:00] LABS: MANUAL DIFF FLAG NO
[2020-11-07 07:05] LABS: Basophils Absolute Auto 0.1 X10*3/uL (0.0-0.2); Basophils Percent Auto 0.7 % (0-2); Eosinophils Absolute Auto 0.3 X10*3/uL (0.0-0.4); Eosinophils Percent Auto 3.7 % (0-4); Hematocrit 35.5 % (37-47); Hemoglobin 11.5 g/dl (12.0-16.0); Imm Gran Abs Auto 0.03 X10*3/uL (0.00-0.03); Imm Gran Pct Auto 0.3 % (0.0-0.4); Lymphocytes Absolute Auto 2.4 X10*3/uL (1.2-4.9); Lymphocytes Percent Auto 27.5 % (20-40); Mean Corpuscular HGB Conc 32.4 g/dl (31.0-35.0); Mean Corpuscular Hemoglobin 30.3 pg (27.0-33.0); Mean Corpuscular Volume 93.7 fL (80-98); Mean Platelet Volume 12.9 fL (9.4-12.3); Monocytes Absolute Auto 0.7 X10*3/uL (0.1-1.2); Monocytes Percent Auto 8.1 % (2-11); Neutrophils Absolute Auto 5.2 X10*3/uL (2.0-8.3); Neutrophils Percent Auto 59.7 % (45-73); Platelet Count 200 X10*3/uL (160-400); Red Blood Count 3.79 X10*6/uL (4.20-5.50); Red Cell Distribution Width 13.3 % (11.0-16.0); White Blood Count 8.7 X10*3/uL (4.8-10.8)
[2020-11-07 07:47] LABS: Anion Gap 16 (12-20); Blood Urea Nitrogen 34 mg/dL (9-16); Calcium 10.2 mg/dL (8.4-10.2); Carbon Dioxide 22 mmol/L (22-29); Chloride 107 mmol/L (96-108); Cholesterol 99 mg/dL; Creatinine Clr Calc Pharmacy 24.7; Estimated Glomerular Filt Rate 31; Glucose Random 90 mg/dL (60-115); HDL Cholesterol 29 mg/dL; LDL Cholesterol Calculated 43 mg/dl; Potassium 4.7 mmol/L (3.3-5.1); Sodium 140 mmol/L (135-145); Triglycerides 137 mg/dL
[2020-11-07] MEDS: Heparin Sodium,Porcine 5,000 UNIT/ML VIAL 5000 UNIT SUBCUT ×2 (08:01→19:50)
[2020-11-07] MEDS: lisinopriL 5 MG TABLET 15 MG PO (08:01)
[2020-11-07] MEDS: Metoprolol Succinate ER 50 MG TAB.ER.24H PO (08:02)
[2020-11-07] MEDS: Docusate Sodium 100 MG CAPSULE PO ×2 (08:03→19:50)
[2020-11-07] MEDS: TiZANidine HCL 4 MG TABLET PO (08:03)
[2020-11-07] MEDS: PARoxetine HCL 20 MG TABLET PO (08:03)
[2020-11-07] MEDS: Magnesium Oxide 400 MG TABLET 800 MG PO (08:03)
[2020-11-07] MEDS: Aspirin 81 MG TAB.CHEW PO (08:03)
--- NOTE | 2020-11-07 09:51 | P.CNNE_ITS ---
History of Present Illness Data of Consult Service Date: 11/07/20 Primary Care Provider: Unknown Physician HPI Reason for consult: Change in mental status 84 years old woman whose history was elaborated in the note as she was unable to provide any meaningful history. Apparently she had been living alone in an [facility] but recently there has been change in her mental status. She was admitted an outside hospital and a diagnosis of ?lacunar stroke? was made and then she was sent to a rehab facility. Her mental status continued to decline and she started having psychiatric symptoms including false believes and was brought back to hospital. There was no evidence of any seizure disorder. Review of Systems Review of Systems: Could not be done with her. [facility] Past Medical History Medical History Back pain with history of spinal surgery CKD stage 3 due to type 1 diabetes mellitus Failed back syndrome HLD (hyperlipidemia) HTN (hypertension) Osteopathia Surgical History Surgical History History of hysterectomy S/P appendectomy Social History Social History Household Members: None Housing: Apartment Do you presently have visiting nurse or other home services: No Patient Tobacco Use Status: Former Tobacco user Second Hand Smoke Exposure: No Use of substances other than those prescribed or required for medical reasons: No Currently Displaying Signs/Symptoms of Drug Intoxication Withdrawal: No Have you been hit, kicked, punched, or otherwise hurt by someone within the past year? If so, by whom?: No Do you feel safe in your current relationship?: No Current Relationship Is there a partner from a previous relationship who is making you feel unsafe now?: No Are you made to feel afraid or neglected: No Advance Directives: No Advance Directives Information Provided: No Do you have thoughts of harming others: None Do you have a plan to hurt others: No Plan Recently lost weight without trying: Unsure service: No Sexual orientation: Straight/Heterosexual Meds Allergies Allergy/AdvReac Type Severity Reaction Status Date / Time acetaminophen [From Percocet] Allergy Unknown Verified 10/31/20 06:24 baclofen Allergy Unknown Verified 10/31/20 06:24 oxycodone Allergy Unknown Verified 10/31/20 06:23 Active Medications: Current Medications Acetaminophen (Acetaminophen 325 Mg Tablet) 650 mg PO Q6H PRN PRN Reason: Pain, Mild (Pain Scale 1-3) Al Hydroxide/Mg Hydroxide (Magnesium Hydrox/Alum Hydrox 30 Ml Oral.Susp) 30 ml PO Q6H PRN PRN Reason: Heartburn/Nausea Aspirin (Aspirin 81 Mg Tab.Chew) 81 mg PO DAILY [facility] Last Admin: 11/07/20 08:03 Dose: 81 mg Documented by: Atorvastatin Calcium (Atorvastatin Calcium 40 Mg Tablet) 40 mg PO BEDTIME [facility] Last Admin: 11/06/20 21:16 Dose: 40 mg Documented by: Docusate Sodium (Docusate Sodium 100 Mg Capsule) 100 mg PO BID [facility] Last Admin: 11/07/20 08:03 Dose: 100 mg Documented by: Heparin Sodium (Porcine) (Heparin Sodium,Porcine 5,000 Unit/Ml Vial) 5,000 unit SUBCUT Q12H [facility] Last Admin: 11/07/20 08:01 Dose: 5,000 unit Documented by: Hydroxyzine HCl (Hydroxyzine Hcl 25 Mg Tablet) 25 mg PO BEDTIME PRN PRN Reason: Anxiety Lisinopril (Lisinopril 5 Mg Tablet) 15 mg PO DAILY [facility]; Protocol Last Admin: 11/07/20 08:01 Dose: 15 mg Documented by: Loperamide HCl (Loperamide Hcl 2 Mg Capsule) 2 mg PO Q4H PRN PRN Reason: Diarrhea Magnesium Hydroxide (Milk Of Magnesia 30 Ml Oral.Susp) 30 ml PO DAILY PRN PRN Reason: Constipation Magnesium Oxide (Magnesium Oxide 400 Mg Tablet) 800 mg PO DAILY [facility] Last Admin: 11/07/20 08:03 Dose: 800 mg Documented by: Metoprolol Succinate (Metoprolol Succinate Er 50 Mg Tab.Er.24h) 50 mg PO DAILY [facility]; Protocol Last Admin: 11/07/20 08:02 Dose: 50 mg Documented by: Nortriptyline HCl (Nortriptyline Hcl 10 Mg Capsule) 40 mg PO BEDTIME [facility] Last Admin: 11/06/20 21:16 Dose: 40 mg Documented by: Omeprazole (Omeprazole 20 Mg Capsule.Dr) 20 mg PO DAILY@0630 [facility] Last Admin: 11/07/20 05:37 Dose: 20 mg Documented by: Ondansetron HCl (Ondansetron Hcl 4 Mg/2 Ml Vial) 4 mg IVPUSH Q8H PRN PRN Reason: Nausea and Vomiting Paroxetine HCl (Paroxetine Hcl 20 Mg Tablet) 20 mg PO DAILY [facility] Last Admin: 11/07/20 08:03 Dose: 20 mg Documented by: Pharmacy Consult (Consult Rx Perform Med Rec) 1 each MISCELLANE ONCE PRN PRN Reason: Consult order Risperidone (Risperidone 1 Mg Tablet) 1 mg PO BEDTIME [facility] Last Admin: 11/06/20 21:16 Dose: 1 mg Documented by: Senna (Sennosides 8.6 Mg Tablet) 8.6 mg PO BEDTIME PRN PRN Reason: Constipation Tizanidine HCl (Tizanidine Hcl 4 Mg Tablet) 4 mg PO BID PRN PRN Reason: Muscle Spasm Last Admin: 11/07/20 08:03 Dose: 4 mg Documented by: Home Medications Medication Instructions Recorded Confirmed Last Taken Type atorvastatin 40 mg tablet 40 mg PO BEDTIME 10/31/20 11/06/20 Unknown History docusate sodium 100 mg capsule 100 mg PO BID 10/31/20 11/06/20 Unknown History (Colace) lisinopril 10 mg tablet 10 mg PO DAILY 10/31/20 11/06/20 Unknown History lorazepam 1 mg tablet 1 mg PO BEDTIME 10/31/20 11/06/20 Unknown History magnesium oxide 800 mg PO DAILY 10/31/20 11/06/20 Unknown History metoprolol succinate 50 mg 50 mg PO BID 10/31/20 11/06/20 Unknown History tablet,extended release 24 hr pantoprazole 40 mg tablet,delayed 40 mg PO DAILY 10/31/20 11/06/20 Unknown History release paroxetine HCl 40 mg tablet 40 mg PO DAILY 10/31/20 11/06/20 Unknown History sennosides 8.6 mg tablet (senna) 17.2 mg PO BEDTIME PRN 10/31/20 11/06/20 Unknown History aspirin 81 mg chewable tablet 81 mg PO DAILY 11/06/20 11/06/20 Unknown History calcium carbonate 600 mg (1,500 1 tab PO TID 11/06/20 11/06/20 Unknown History mg)-vitamin D3 400 unit tablet (Calcium 600 + D(3)) cetirizine 10 mg tablet 10 mg PO DAILY 11/06/20 11/06/20 Unknown History melatonin 5 mg tablet 5 mg PO BEDTIME PRN 11/06/20 11/06/20 Unknown History nortriptyline 10 mg capsule 40 mg PO DAILY 11/06/20 11/06/20 Unknown History tizanidine 4 mg tablet 4 mg PO BID PRN 11/06/20 11/06/20 Unknown History Physical Exam Vital Signs: Vital Signs: Last Vital Signs Temp 98.4 F 11/07/20 07:42 Pulse 82 11/07/20 08:02 Resp 18 11/07/20 07:42 BP 153/59 H 11/07/20 08:02 Pulse Ox 97 11/07/20 07:42 Body Mass Index 25.7 Neuro: Other: She was quite drowsy and I was barely able to wake her up with coaxing and shouting. She open her eyes made eye contact but did not continue that more than a 2nd or 2. She followed one-step commands including squeezing my hands with each finger or lifting each leg when asked to do so. She also took her tongue out when I asked her to do so. When asked if she was hungry she said yes and when asked what she wanted to eat she said breakfast. When I told her that the breakfast was sitting next to her bed she did not respond. Speech was slurred. Pupils were round reactive to light. Face seemed pendulous. Deep tendon reflexes were trace to absent with equivocal plantars. Results Labs CBC & Chem 7: 11/07/20 06:26 11/07/20 06:26 Labs: Short CBC 11/07/20 Range/Units 06:26 WBC 8.7 (4.8-10.8) X10*3/uL Hgb 11.5 L (12.0-16.0) g/dl Hct 35.5 L (37-47) % Plt Count 200 (160-400) X10*3/uL BMP 11/07/20 06:26 Sodium 140 Potassium 4.7 Chloride 107 Carbon Dioxide 22 BUN 34 H Creatinine 1.60 H Calcium 10.[address] has revealed extensive microvascular ischemic changes bilaterally with no obvious acute lesion. Her EKG revealed normal sinus rhythm. Assessment and Plan (1) Encephalopathy: Status: Acute 84 years old woman with encephalopathy but no obvious sign of infection. She does have significant vascular disease of chronic nature that could result in dementia. Overall presentation was more of encephalopathy than a focal lesion such as stroke or seizure. In any case, because of no obvious definitive explanation, might be useful to obtain an MRI of brain to rule out any new infarcts that could explain significant change in mental status. Otherwise I would recommend avoiding medicines that may not be needed at this time. For that matter, I would suggest stopping nortriptyline and tizanidine. If MRI was negative and her mental status did not improve, an EEG can also be considered. (2) Cerebral microvascular disease: Status: Acute (3) Vascular dementia: Status: Acute Procedures Date of Service Date of Service: 11/07/20
[2020-11-07 12:29] LABS: Ammonia 22 umol/L (13-55)
--- NOTE | 2020-11-07 12:50 | HO.PM.IMPN ---
Subjective Subjective Date of Service: 11/07/20 Interval History: Seen and examined this morning Follow-up for altered mental status, transferred from psych floor for acute change in mental status Patient lethargic this morning, answering questions with eyes closed, able to follow basic commands Patient's nurse indicated that she was more awake earlier and was able to take her a.m. medications Review of Systems Review of Systems: Yes Unobtainable due to mental status Physical Exam Vital Signs: Vital Signs: Last Vital Signs Temp 97.7 F 11/07/20 11:39 Pulse 65 11/07/20 11:39 Resp 20 11/07/20 11:39 BP 104/66 11/07/20 11:39 Pulse Ox 95 11/07/20 11:39 Body Mass Index 25.7 Const: General: lethargic Nutritional Appearance: well nourished Orientation/consciousness: lethargic Limitations: altered mental status HENMT: Head: Yes normocephalic and Yes atraumatic Eyes: Sclerae: sclerae normal Pupils: Equal, round and reactive pupils present Resp: Effort & Inspection: normal respiratory effort and no respiratory distress Cardio: Rate: regular rate Rhythm: regular rhythm GI: Palpation (GI): Soft to palpation and nontender Neuro: Other: drowsy, difficult to wake up, but able to follow some simple commands, and answer some simple questions,able to move all 4 extremities spontaneously Cranial nerves: Yes Equal, round and reactive pupils present Extrem: Other: no leg edema Objective Data Active Medications Acetaminophen (Acetaminophen 325 Mg Tablet) 650 mg PO Q6H PRN PRN Reason: Pain, Mild (Pain Scale 1-3) Al Hydroxide/Mg Hydroxide (Magnesium Hydrox/Alum Hydrox 30 Ml Oral.Susp) 30 ml PO Q6H PRN PRN Reason: Heartburn/Nausea Aspirin (Aspirin 81 Mg Tab.Chew) 81 mg PO DAILY [facility] Last Admin: 11/07/20 08:03 Dose: 81 mg Documented by: SHANELL Atorvastatin Calcium (Atorvastatin Calcium 40 Mg Tablet) 40 mg PO BEDTIME [facility] Last Admin: 11/06/20 21:16 Dose: 40 mg Documented by: BONNIE Docusate Sodium (Docusate Sodium 100 Mg Capsule) 100 mg PO BID [facility] Last Admin: 11/07/20 08:03 Dose: 100 mg Documented by: SHANELL Heparin Sodium (Porcine) (Heparin Sodium,Porcine 5,000 Unit/Ml Vial) 5,000 unit SUBCUT Q12H [facility] Last Admin: 11/07/20 08:01 Dose: 5,000 unit Documented by: SHANELL Hydroxyzine HCl (Hydroxyzine Hcl 25 Mg Tablet) 25 mg PO BEDTIME PRN PRN Reason: Anxiety Lisinopril (Lisinopril 5 Mg Tablet) 15 mg PO DAILY [facility]; Protocol Last Admin: 11/07/20 08:01 Dose: 15 mg Documented by: SHANELL Loperamide HCl (Loperamide Hcl 2 Mg Capsule) 2 mg PO Q4H PRN PRN Reason: Diarrhea Magnesium Hydroxide (Milk Of Magnesia 30 Ml Oral.Susp) 30 ml PO DAILY PRN PRN Reason: Constipation Magnesium Oxide (Magnesium Oxide 400 Mg Tablet) 800 mg PO DAILY [facility] Last Admin: 11/07/20 08:03 Dose: 800 mg Documented by: SHANELL Metoprolol Succinate (Metoprolol Succinate Er 50 Mg Tab.Er.24h) 50 mg PO DAILY [facility]; Protocol Last Admin: 11/07/20 08:02 Dose: 50 mg Documented by: SHANELL Omeprazole (Omeprazole 20 Mg Capsule.Dr) 20 mg PO DAILY@0630 [facility] Last Admin: 11/07/20 05:37 Dose: 20 mg Documented by: BONNIE Ondansetron HCl (Ondansetron Hcl 4 Mg/2 Ml Vial) 4 mg IVPUSH Q8H PRN PRN Reason: Nausea and Vomiting Paroxetine HCl (Paroxetine Hcl 20 Mg Tablet) 20 mg PO DAILY [facility] Last Admin: 11/07/20 08:03 Dose: 20 mg Documented by: SHANELL Pharmacy Consult (Consult Rx Perform Med Rec) 1 each MISCELLANE ONCE PRN PRN Reason: Consult order Risperidone (Risperidone 1 Mg Tablet) 1 mg PO BEDTIME [facility] Last Admin: 11/06/20 21:16 Dose: 1 mg Documented by: BONNIE Senna (Sennosides 8.6 Mg Tablet) 8.6 mg PO BEDTIME PRN PRN Reason: Constipation Labs CBC & Chem 7: 11/07/20 06:26 11/07/20 06:26 Labs: Laboratory Results - last 24 hr 11/07/20 11/07/20 11/07/20 06:26 06:26 12:10 MCV 93.7 MCH 30.3 MCHC 32.4 RDW 13.3 Plt Count 200 MPV 12.9 H Immature Gran % (Auto) 0.3 Neut % (Auto) 59.7 Lymph % (Auto) 27.5 [place] % (Auto) 8.1 Eos % (Auto) 3.7 Baso % (Auto) 0.7 Lymph # (Auto) 2.4 [place] # (Auto) 0.7 Eos # (Auto) 0.3 Baso # (Auto) 0.1 Abs Immat Gran (auto) 0.03 Absolute Neuts (auto) 5.2 Absolute Nucleated RBC 0.000 Nucleated RBC % (auto) 0.0 Anion Gap 16 Estim Creat Clear Calc 24.7 Estimated GFR 31 Random Glucose 90 Calcium 10.2 Ammonia 22 Triglycerides 137 Cholesterol 99 LDL Cholesterol, Calc 43 HDL Cholesterol 29 Assessment and Plan (1) Acute encephalopathy: Status: Acute (2) HTN (hypertension): Status: Acute (3) HLD (hyperlipidemia): Status: Acute Assessment and Plan: This is an 84-year-old female with a history of hypertension, hyperlipidemia, CKD, diabetes initially admitted to the psychiatric floor for management of irritability and false beliefs. On November 06 patient was noted to have sudden onset change in mental status. She became confused and was transferred to the medical floor for further care. Acute encephalopathy work up in progress Recently treated for stroke at outside hospital Brain CT showing generalized volume loss, small-vessel ischemic disease, no acute intracranial pathology Seen by neurology - rec MRI of brain, and d/c nortriptyline, tizanidine No obvious sign of infection, no leukocytosis, afebrile if MRI negative, consider EEG avoid sedating medications psych eval for assistance with med management TSH, b12, folate, ammonia wnl neuro checks CKD3 follow BMP Hypertension Continue lisinopril, metoprolol h/o cva continue statin, asa GERD continue omeprazole Mood Continue Paxil, risperidone psych eval for help with med management DVT prophylaxis-heparin Attending physician-Dr. Ponce Quality Stroke Does the patient have a stroke diagnosis?: No VTE Prior VTE?: No VTE Risk Level:: Medical - moderate - high VTE Device Contraindication: Treatment Not Indicated VTE Drug Contraindication: N/A - Med Ordered
--- NOTE | 2020-11-07 16:25 | MHC.CM.PN ---
CM spoke with Patient's Son/HCP/Nishant.Patient lives alone in an apartment and is part of [facility]. DC plan is TBD (?return to [facility], VS Home/resume PACE services, vs STR/LTC pending progress. CM has initiated and will follow for dc planning.
--- NOTE | 2020-11-07 17:49 | PC.NURSE ---
Patient remains drowsy and lethargic throughout the day. Early this morning patient arousable to verbal stimulus, able to state name and . Able to take PO medications. PA at beside and patient found to be more lethargic. Ammonia level WNL. Medications adjusted per Neuros recommendation. This afternoon patient still lethargic but able to open eyes to command and use bedside commode, unable to stay awake for long periods of time. VSS.This RN unable to perform FULL afternoon neuro assessments at times. PA made aware. Obtained telephone MRI consent/screening form from patient's son Nishant Arenas . Patient's son Nishant also confirmed FULL CODE status wishes. LAW made aware. Nishant also provided with health status update and aware patient is lethargic and that medication changes were made. Nishant agreeable to plan of care. Patient transported to MRI without any change in condition or negative events. Tolerated well, remained on tele and with this RN. Patient arrived back on unit, still drowsy but following simple commands. Assisted out of bed to commode with two person assist. This evening MD at bedside with this RN to assess patient. Patient appeared to be more easily arousable to verbal stimuli compared to earlier per this RN. Patient able to follow simple commands. Eyes opening to commands. Smiling to command. Smile noted to be symmetrical, dentures at bedside. Bilateral hand grasp present and patient able to wiggle bilateral toes. Will continue to monitor and assess neuro status.
[2020-11-07] MEDS: risperiDONE 1 MG TABLET PO (19:50)
[2020-11-07] MEDS: Atorvastatin Calcium 40 MG TABLET PO (19:50)
[2020-11-08] VITALS (7 sets, daily range): BP systolic 119–177; BP diastolic 56–87; PULSE 80–100; RESP 18; TEMP 36.3–36.8; O2SAT 96–99
[2020-11-08] MEDS: Omeprazole 20 MG CAPSULE.DR PO (05:35)
[2020-11-08 08:43] LABS: Anion Gap 13 (12-20); Blood Urea Nitrogen 40 mg/dL (9-16); Carbon Dioxide 25 mmol/L (22-29); Chloride 107 mmol/L (96-108); Creatinine Clr Calc Pharmacy 22.9; Estimated Glomerular Filt Rate 28; Glucose Random 115 mg/dL (60-115); Potassium 4.5 mmol/L (3.3-5.1); Sodium 140 mmol/L (135-145)
[2020-11-08 08:46] LABS: Hematocrit 34.7 % (37-47); Hemoglobin 11.4 g/dl (12.0-16.0); Mean Corpuscular HGB Conc 32.9 g/dl (31.0-35.0); Mean Corpuscular Hemoglobin 30.2 pg (27.0-33.0); Mean Platelet Volume 12.6 fL (9.4-12.3); Platelet Count 184 X10*3/uL (160-400); Red Blood Count 3.77 X10*6/uL (4.20-5.50); Red Cell Distribution Width 13.2 % (11.0-16.0); White Blood Count 8.1 X10*3/uL (4.8-10.8)
[2020-11-08] MEDS: Heparin Sodium,Porcine 5,000 UNIT/ML VIAL 5000 UNIT SUBCUT ×2 (08:52→20:31)
[2020-11-08] MEDS: Docusate Sodium 100 MG CAPSULE PO (08:53)
[2020-11-08] MEDS: Aspirin 81 MG TAB.CHEW PO (08:53)
[2020-11-08] MEDS: PARoxetine HCL 20 MG TABLET PO (08:53)
[2020-11-08] MEDS: lisinopriL 5 MG TABLET 15 MG PO (08:53)
[2020-11-08] MEDS: Magnesium Oxide 400 MG TABLET 800 MG PO (08:53)
[2020-11-08] MEDS: Metoprolol Succinate ER 50 MG TAB.ER.24H PO (08:53)
--- NOTE | 2020-11-08 15:09 | HO.PM.IMPN ---
Subjective Subjective Date of Service: 11/08/20 Interval History: Seen and examined this morning Follow-up for encephalopathy Still sleepy but more awake this morning. Following most commands, answering questions Denies any specific complaints at this time. Review of Systems Review of Systems: Yes all other systems are reviewed and are negative Constitutional Constitutional: Denies chills and Denies fever(s) Cardiovascular Cardiovascular: Denies chest pain Respiratory Respiratory: Denies cough Gastrointestinal Gastrointestinal: Denies abdominal pain Physical Exam Vital Signs: Vital Signs: Last Vital Signs Temp 97.8 F 11/08/20 11:33 Pulse 100 11/08/20 11:33 Resp 18 11/08/20 11:33 BP 164/70 H 11/08/20 11:33 Pulse Ox 99 11/08/20 11:33 Body Mass Index 25.7 Const: Other: sleepy but easily arousable to verbal stimuli Nutritional Appearance: well nourished Orientation/consciousness: patient oriented x3 HENMT: Head: Yes normocephalic and Yes atraumatic Eyes: Sclerae: sclerae normal Pupils: Equal, round and reactive pupils present Chest: Chest palpation & inspection: normal inspection of the chest Resp: Effort & Inspection: normal respiratory effort and no respiratory distress Auscultation: clear to auscultation bilaterally Cardio: Rate: regular rate Rhythm: regular rhythm GI: Palpation (GI): Soft to palpation and nontender Skin: General skin exam: no rashes or lesions noted Neuro: Other: drowsy, difficult to wake up, but able to follow some simple commands, and answer some simple questions,able to move all 4 extremities spontaneously General: patient oriented x3 Cranial nerves: Yes CN's II-XII intact bilaterally, Yes Equal, round and reactive pupils present and Yes Bilaterally intact EOM present Extrem: Other: no leg edema Objective Data Active Medications Acetaminophen (Acetaminophen 325 Mg Tablet) 650 mg PO Q6H PRN PRN Reason: Pain, Mild (Pain Scale 1-3) Al Hydroxide/Mg Hydroxide (Magnesium Hydrox/Alum Hydrox 30 Ml Oral.Susp) 30 ml PO Q6H PRN PRN Reason: Heartburn/Nausea Aspirin (Aspirin 81 Mg Tab.Chew) 81 mg PO DAILY [facility] Last Admin: 11/08/20 08:53 Dose: 81 mg Documented by: MIRTHA Atorvastatin Calcium (Atorvastatin Calcium 40 Mg Tablet) 40 mg PO BEDTIME [facility] Last Admin: 11/07/20 19:50 Dose: 40 mg Documented by: BONNIE Docusate Sodium (Docusate Sodium 100 Mg Capsule) 100 mg PO BID [facility] Last Admin: 11/08/20 08:53 Dose: 100 mg Documented by: MIRTHA Heparin Sodium (Porcine) (Heparin Sodium,Porcine 5,000 Unit/Ml Vial) 5,000 unit SUBCUT Q12H [facility] Last Admin: 11/08/20 08:52 Dose: 5,000 unit Documented by: MIRTHA Hydroxyzine HCl (Hydroxyzine Hcl 25 Mg Tablet) 25 mg PO BEDTIME PRN PRN Reason: Anxiety Lactated Ringer's (Lr) 1,000 mls @ 100 mls/hr IVCONT .Q10H [facility] Loperamide HCl (Loperamide Hcl 2 Mg Capsule) 2 mg PO Q4H PRN PRN Reason: Diarrhea Magnesium Hydroxide (Milk Of Magnesia 30 Ml Oral.Susp) 30 ml PO DAILY PRN PRN Reason: Constipation Magnesium Oxide (Magnesium Oxide 400 Mg Tablet) 800 mg PO DAILY [facility] Last Admin: 11/08/20 08:53 Dose: 800 mg Documented by: MIRTHA Metoprolol Succinate (Metoprolol Succinate Er 50 Mg Tab.Er.24h) 50 mg PO DAILY [facility]; Protocol Last Admin: 11/08/20 08:53 Dose: 50 mg Documented by: MIRTHA Omeprazole (Omeprazole 20 Mg Capsule.Dr) 20 mg PO DAILY@0630 [facility] Last Admin: 11/08/20 05:35 Dose: 20 mg Documented by: BONNIE Ondansetron HCl (Ondansetron Hcl 4 Mg/2 Ml Vial) 4 mg IVPUSH Q8H PRN PRN Reason: Nausea and Vomiting Paroxetine HCl (Paroxetine Hcl 20 Mg Tablet) 20 mg PO DAILY [facility] Last Admin: 11/08/20 08:53 Dose: 20 mg Documented by: MIRTHA Pharmacy Consult (Consult Rx Perform Med Rec) 1 each MISCELLANE ONCE PRN PRN Reason: Consult order Risperidone (Risperidone 1 Mg Tablet) 1 mg PO BEDTIME [facility] Last Admin: 11/07/20 19:50 Dose: 1 mg Documented by: BONNIE Senna (Sennosides 8.6 Mg Tablet) 8.6 mg PO BEDTIME PRN PRN Reason: Constipation Labs CBC & Chem 7: 11/08/20 08:04 11/08/20 08:04 Labs: Laboratory Results - last 24 hr 11/08/20 11/08/20 08:04 08:04 MCV 92.0 MCH 30.2 MCHC 32.9 RDW 13.2 Plt Count 184 MPV 12.6 H Absolute Nucleated RBC 0.000 Nucleated RBC % (auto) 0.0 Anion Gap 13 Estim Creat Clear Calc 22.9 Estimated GFR 28 Random Glucose 115 Calcium 10.0 Assessment and Plan (1) Encephalopathy: Status: Acute Assessment and Plan: This is an 84-year-old female with a history of hypertension, hyperlipidemia, CKD, diabetes initially admitted to the psychiatric floor for management of irritability and false beliefs. On November 06 patient was noted to have sudden onset change in mental status. She became confused and was transferred to the medical floor for further care. Acute encephalopathy seems to be improving, more awake this morning, likely medication related Brain CT showing generalized volume loss, small-vessel ischemic disease, no acute intracranial pathology MRI showing subacute stroke (Recently treated for stroke at outside hospital) No obvious sign of infection, no leukocytosis, afebrile nortriptyline, tizanidine have been d/c avoid sedating medications psych eval for assistance with med management TSH, b12, folate, ammonia wnl neuro checks NAVID on CKD3 Creatinine increased to 1.7 up from 1.47 on 10/31 No baseline in system hold lisinopril IVF Follow BMP Hypertension Continue metoprolol Hold lisinopril for NAVID Monitor blood pressure closely h/o cva continue statin, asa GERD continue omeprazole Mood Continue Paxil, risperidone psych eval for help with med management DVT prophylaxis-heparin Attending physician-Dr. Ponce Quality Stroke Does the patient have a stroke diagnosis?: No VTE Prior VTE?: No VTE Risk Level:: Medical - moderate - high VTE Device Contraindication: Treatment Not Indicated VTE Drug Contraindication: N/A - Med Ordered
[2020-11-08] MEDS: Lactated Ringers 1,000 ML 100 ML IVCONT (15:26)
[2020-11-08] MEDS: Atorvastatin Calcium 40 MG TABLET PO (20:30)
[2020-11-08] MEDS: risperiDONE 1 MG TABLET PO (20:30)
[2020-11-08] MEDS: hydrOXYzine HCL 25 MG TABLET PO (20:39)
--- NOTE | 2020-11-08 23:57 | PC.NURSE ---
Dr. Carlson at bedside, ordered to DC tele, fluids and IV. Waiting to DC pt back to [facility] floor.
[2020-11-09 03:28] VITALS: BP 137/63; PULSE 70; RESP 18; TEMP 37.2; O2SAT 97
[2020-11-09 07:59] VITALS: BP 126/56; PULSE 90; RESP 18; TEMP 36.4; O2SAT 98
[2020-11-09] MEDS: Magnesium Oxide 400 MG TABLET 800 MG PO (08:38)
[2020-11-09 08:40] VITALS: BP 126/56; PULSE 90
[2020-11-09] MEDS: Aspirin 81 MG TAB.CHEW PO (08:40)
[2020-11-09] MEDS: PARoxetine HCL 20 MG TABLET PO (08:40)
[2020-11-09] MEDS: Metoprolol Succinate ER 50 MG TAB.ER.24H PO (08:40)
[2020-11-09] MEDS: Heparin Sodium,Porcine 5,000 UNIT/ML VIAL 5000 UNIT SUBCUT (08:42)
--- NOTE | 2020-11-09 10:41 | P.DS_ITS ---
DS: Providers Provider Date of Service: 11/09/20 Date of admission: 11/06/20 17:00 Primary care physician: Unknown Physician Consults: 11/06/20 17:25 Consult to Neurology Routine Consulting Provider: Henny Buck Reason for consultation: new PI acute mse changes lacunar infarcts gait disturbance Has provider been notified: No Consult to Wound Care Routine Consulting Provider: Omayra Bell Reason for consultation: Skin Tear to Left Hand Has provider been notified: Yes 11/06/20 17:26 Consult to Neurology Routine Consulting Provider: [facility] Reason for consultation: ? TIA Has provider been notified: No 11/06/20 17:37 Consult to Psychiatry Routine Consulting Provider: Yaw Esparza Reason for consultation: encephalopathy secondary to TIA vs psych medication Has provider been notified: No Attending physician on discharge: Paul Hassan Discharging clinician: Didi Badillo DS: Diagnosis Discharge Diagnosis (1) Acute encephalopathy: Status: Acute (2) HTN (hypertension): Status: Acute (3) HLD (hyperlipidemia): Status: Acute (4) CKD stage 3 due to type 1 diabetes mellitus: Status: Acute DS: Summary Hospital Course Hospital Course: 84-year-old woman that was admitted to Geriatric Psychiatry and suddenly developed acute confusion transferred to intermediate care for possible TIA.? Patient is normally alert and oriented x3 and had been working with Behavioral Health staff throughout the day and suddenly this evening developed confusion, was unable to say her full name, did not know where she was and seemed to developed a hand tremor.? The patient denied any chest pain, shortness of breath, nausea, vomiting, recent injury.? The staff denied any injury or fall.? She was recently started on some new psychiatric medications.? Her vital signs were stable with no hypoxia or severe hypotension.? It was agreed that patient would be transferred to medical floor on observation and worked up for possible TIA. Acute encephalopathy. Transferred from [facility]. Seen and evaluated by Neurology, had MRI and brain CT. The consensus is that patient's symptoms are likely related to new psychiatric medications and not appearing to be acute stroke. She does have a history of lacunar infarct in the past. She is now alert and oriented to person place and time. Discussion was had with Dr. Wolf Rogers, psychiatrist. The plan will be to transfer her back down to [facility] to complete treatment. Time Spent with Patient Time attestation: Total time spent providing and/or coordinating discharge services: Discharge coordination time: Greater than 30 minutes Quality: Stroke Does the patient have a stroke diagnosis?: No Physical Exam Vital Signs: Vital Signs: Last Vital Signs Temp 97.5 F 11/09/20 07:59 Pulse 90 11/09/20 08:40 Resp 18 11/09/20 07:59 BP 126/56 L 11/09/20 08:40 Pulse Ox 98 11/09/20 07:59 Body Mass Index 25.7 Appearing in no acute distress head is normocephalic atraumatic eyes pupils are PERRLA sclera is anicteric mouth throat mucous membranes are intact and moist neck is supple no lymphadenopathy, no JVD noted lung sounds are clear to auscultation heart regular rate rhythm, clear S1, S2 positive bowel sounds, abdomen is soft, nontender neuro patient is alert x3, no focal deficits Discharge Plan Discharge Anticipated Discharge Date/Time: 11/09/20 10:33 Disposition: Xfer Psychiatric Hosp Referrals: Physician,Unknown [Primary Care Provider] - 1 Week Discharge Medications: Continued lisinopril 10 mg Tablet 10 mg PO DAILY RF: 0 magnesium oxide 400 mg magnesium Tablet 800 mg PO DAILY RF: 0 metoprolol succinate 50 mg Tablet Extended Release 24 Hr 50 mg PO BID RF: 0 pantoprazole 40 mg Tablet,Delayed Release (Dr/Ec) 40 mg PO DAILY RF: 0 paroxetine HCl 40 mg Tablet 40 mg PO DAILY RF: 0 docusate sodium [Colace] 100 mg Capsule 100 mg PO BID RF: 0 lorazepam 1 mg Tablet 1 mg PO BEDTIME RF: 0 sennosides [senna] 8.6 mg Tablet 17.2 mg PO BEDTIME PRN (Reason: Constipation) RF: 0 atorvastatin 40 mg Tablet 40 mg PO BEDTIME RF: 0 cetirizine 10 mg Tablet 10 mg PO DAILY RF: 0 tizanidine 4 mg Tablet 4 mg PO BID PRN (Reason: Muscle Spasm) RF: 0 nortriptyline 10 mg Capsule 40 mg PO DAILY RF: 0 aspirin 81 mg Tablet,Chewable 81 mg PO DAILY RF: 0 calcium carbonate-vitamin D3 [Calcium 600 + D(3)] 600 mg(1,500mg) -400 unit Tablet 1 tab PO TID RF: 0 melatonin 5 mg Tablet 5 mg PO BEDTIME PRN (Reason: Insomnia) RF: 0 Discharge Orders: Discharge Order (Routine); Ordered 11/09/20 Ordered By: Didi Badillo Forms: Patient Portal Discharge page Care Plan Goals: complete treatment for mental health disorder Health Concerns: acute encephalopathy Plan of Treatment: plan is for transfer back to the geriatric psych, discussed with Dr. Wolf Rogers Assessment: see discharge summary
--- NOTE | 2020-11-09 11:12 | MHC.CM.PN ---
pt being transferred back [place]
[2020-11-09 11:31] VITALS: BP 164/81; PULSE 86; RESP 18; TEMP 36.6; O2SAT 97
[2020-11-10 02:47] LABS: Nortriptyline 104 mcg/L (50-150)
== END 2020-11-09 14:40 | DRG 92 ==
PROVIDERS: Physician Assistant Medical; Admitting Provider Internal Medicine; Visit Provider Nurse Practitioner Acute Care
DX: G92.8 Other toxic encephalopathy (principal); N17.9 Acute kidney failure, unspecified; T43.015A Adverse effect of tricyclic antidepressants, initial encounter; T42.8X5A Adverse effect of antiparkinsonism drugs and other central muscle-tone depressants, initial encounter; Y92.9 Unspecified place or not applicable; E10.22 Type 1 diabetes mellitus with diabetic chronic kidney disease; I12.9 Hypertensive chronic kidney disease with stage 1 through stage 4 chronic kidney disease, or unspecified chronic kidney disease; N18.30 Chronic kidney disease, stage 3 unspecified; E78.5 Hyperlipidemia, unspecified; I69.91 Cognitive deficits following unspecified cerebrovascular disease; F06.31 Mood disorder due to known physiological condition with depressive features; Z87.891 Personal history of nicotine dependence; Z88.5 Allergy status to narcotic agent; Z88.6 Allergy status to analgesic agent; Z79.82 Long term (current) use of aspirin; Z79.899 Other long term (current) drug therapy
CPT/HCPCS: 36415; 70551; 80048; 80061; 80335; 82140; 85025; 85027

== ENCOUNTER 2020-11-09 14:33 | Inpatient (IN) | payer OTHER, SELFPAY ==
--- NOTE | 2020-11-09 18:30 | PC.NURSE ---
Pt transferred back to floor from [facility] at 1413. Pt signed a three day notice upon return to the floor. Pt continues to be confused, no delusions noted. [facility] reported pt was ruled out for TIA via head CT. Pt continued with confusion, AMS and aphasia at times while on [facility].
[2020-11-09 20:23] VITALS: BP 88/57; PULSE 99; RESP 17; TEMP 36.4; O2SAT 99
[2020-11-09] MEDS: Heparin Sodium,Porcine 5,000 UNIT/ML VIAL 5000 UNIT SUBCUT (21:00)
[2020-11-09] MEDS: Docusate Sodium 100 MG CAPSULE PO (21:01)
[2020-11-09] MEDS: Atorvastatin Calcium 40 MG TABLET PO (21:01)
[2020-11-09] MEDS: Calcium + Vitamin D 250 MG TABLET 500 MG PO (21:01)
[2020-11-09] MEDS: LORazepam 1 MG TABLET PO (21:01)
[2020-11-09] MEDS: risperiDONE 1 MG TABLET PO (21:01)
[2020-11-09] MEDS: TiZANidine HCL 4 MG TABLET PO (21:49)
[2020-11-09] MEDS: Melatonin 3 MG TABLET 6 MG PO (21:50)
[2020-11-10 09:19] VITALS: BP 104/55; PULSE 97; RESP 16; TEMP 36.2; O2SAT 97
[2020-11-10] MEDS: PARoxetine HCL 20 MG TABLET PO (09:21)
[2020-11-10] MEDS: Calcium + Vitamin D 250 MG TABLET 500 MG PO ×3 (09:21→20:11)
[2020-11-10] MEDS: Magnesium Oxide 400 MG TABLET 800 MG PO (09:22)
[2020-11-10] MEDS: Omeprazole 20 MG CAPSULE.DR PO (09:22)
[2020-11-10] MEDS: Aspirin 81 MG TAB.CHEW PO (09:22)
[2020-11-10 09:23] VITALS: BP 104/55; PULSE 97
[2020-11-10] MEDS: Loratadine 10 MG TABLET PO (09:23)
[2020-11-10] MEDS: Nortriptyline HCl 10 MG CAPSULE 40 MG PO (09:23)
[2020-11-10] MEDS: Metoprolol Succinate ER 50 MG TAB.ER.24H PO (09:23)
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
[2020-11-10] MEDS: TiZANidine HCL 4 MG TABLET PO (17:49)
[2020-11-10 18:00] VITALS: BP 114/59; PULSE 90; RESP 18; TEMP 36.7; O2SAT 98
[2020-11-10] MEDS: LORazepam 1 MG TABLET PO (20:11)
[2020-11-10] MEDS: Docusate Sodium 100 MG CAPSULE PO (20:11)
[2020-11-10] MEDS: risperiDONE 1 MG TABLET PO (20:11)
[2020-11-10] MEDS: Atorvastatin Calcium 40 MG TABLET PO (20:11)
[2020-11-11] MEDS: Omeprazole 20 MG CAPSULE.DR PO (06:07)
[2020-11-11 09:05] VITALS: BP 150/66; PULSE 92; RESP 16; TEMP 36.8; O2SAT 99
[2020-11-11] MEDS: Calcium + Vitamin D 250 MG TABLET 500 MG PO ×3 (09:15→20:54)
[2020-11-11] MEDS: PARoxetine HCL 20 MG TABLET PO (09:15)
[2020-11-11] MEDS: Docusate Sodium 100 MG CAPSULE PO ×2 (09:15→20:54)
[2020-11-11] MEDS: Aspirin 81 MG TAB.CHEW PO (09:15)
[2020-11-11 09:16] VITALS: BP 150/66; PULSE 92
[2020-11-11] MEDS: Metoprolol Succinate ER 50 MG TAB.ER.24H PO (09:16)
[2020-11-11] MEDS: Nortriptyline HCl 10 MG CAPSULE 40 MG PO (09:16)
[2020-11-11] MEDS: Loratadine 10 MG TABLET PO (09:18)
[2020-11-11] MEDS: Magnesium Oxide 400 MG TABLET 800 MG PO (09:18)
--- NOTE | 2020-11-11 12:22 | P.PNPSI_ITS ---
Subjective Subjective Date of Service: 11/11/20 Reason For Visit: Mental status change Subjective Notes: Conditional Voluntary Interim History: The patient signed today a CV and a 3 day notice letter, she came back from medicine and she looks better, more oriented and verbal. Denies hallucinations and she is eating well. Today, she denied new symptoms, she was pleasant. we had a meeting wiht her son and she will be ready for discharge soon. Review of Systems Acute medical concerns: No Medical Review of Systems: unchanged Mental Status Exam Mental Status Exam Patient Appearance: Well Grooomed Patient Orientation: Person and Situation Level of Consciousness: Awake and Appropriate Patient Behavior: Cooperative Mood Description: Constricted Affect Description: Constricted Patient Cognition Impaired: Yes Ability to Follow Directions: Good Speech Pattern: Clear Memory Description: Intact Hallucinations: None Delusions: Not Present Thought Process: Slowed Thinking Thought Content: positive for Circumstantial Judgement: Fair Diagnostics Vital Signs (24Hr): Vital Signs - 24 hr 11/10/20 18:00 11/11/20 09:05 11/11/20 09:16 Temperature 98.1 F 98.2 F Pulse Rate 90 92 92 Respiratory Rate 18 16 Blood Pressure 114/59 L 150/66 H 150/66 H Pulse Oximetry 98 99 Medications Medications Current Medications Al Hydroxide/Mg Hydroxide (Magnesium Hydrox/Alum Hydrox 30 Ml Oral.Susp) 30 ml PO Q6H PRN PRN Reason: Heartburn/Nausea Aspirin (Aspirin 81 Mg Tab.Chew) 81 mg PO DAILY [facility] Last Admin: 11/11/20 09:15 Dose: 81 mg Documented by: Atorvastatin Calcium (Atorvastatin Calcium 40 Mg Tablet) 40 mg PO BEDTIME [facility] Last Admin: 11/10/20 20:11 Dose: 40 mg Documented by: Calcium Carbonate/Cholecalciferol (Calcium + Vitamin D 250 Mg Tablet) 500 mg PO TID [facility] Last Admin: 11/11/20 09:15 Dose: 500 mg Documented by: Docusate Sodium (Docusate Sodium 100 Mg Capsule) 100 mg PO BID [facility] Last Admin: 11/11/20 09:15 Dose: 100 mg Documented by: Hydroxyzine HCl (Hydroxyzine Hcl 25 Mg Tablet) 25 mg PO BEDTIME PRN PRN Reason: Anxiety Loperamide HCl (Loperamide Hcl 2 Mg Capsule) 2 mg PO Q4H PRN PRN Reason: Diarrhea Loratadine (Loratadine 10 Mg Tablet) 10 mg PO DAILY [facility] Last Admin: 11/11/20 09:18 Dose: 10 mg Documented by: Lorazepam (Lorazepam 1 Mg Tablet) 1 mg PO BEDTIME [facility] Last Admin: 11/10/20 20:11 Dose: 1 mg Documented by: Magnesium Hydroxide (Milk Of Magnesia 30 Ml Oral.Susp) 30 ml PO DAILY PRN PRN Reason: Constipation Magnesium Oxide (Magnesium Oxide 400 Mg Tablet) 800 mg PO DAILY [facility] Last Admin: 11/11/20 09:18 Dose: 800 mg Documented by: Melatonin (Melatonin 3 Mg Tablet) 6 mg PO BEDTIME PRN PRN Reason: Insomnia Last Admin: 11/09/20 21:50 Dose: 6 mg Documented by: Metoprolol Succinate (Metoprolol Succinate Er 50 Mg Tab.Er.24h) 50 mg PO DAILY [facility]; Protocol Last Admin: 11/11/20 09:16 Dose: 50 mg Documented by: Nortriptyline HCl (Nortriptyline Hcl 10 Mg Capsule) 40 mg PO DAILY [facility] Last Admin: 11/11/20 09:16 Dose: 40 mg Documented by: Omeprazole (Omeprazole 20 Mg Capsule.Dr) 20 mg PO DAILY@0630 [facility] Last Admin: 11/11/20 06:07 Dose: 20 mg Documented by: Ondansetron HCl (Ondansetron Hcl 4 Mg/2 Ml Vial) 4 mg IVPUSH Q8H PRN PRN Reason: Nausea and Vomiting Paroxetine HCl (Paroxetine Hcl 20 Mg Tablet) 20 mg PO DAILY [facility] Last Admin: 11/11/20 09:15 Dose: 20 mg Documented by: Risperidone (Risperidone 1 Mg Tablet) 1 mg PO BEDTIME [facility] Last Admin: 11/10/20 20:11 Dose: 1 mg Documented by: Senna (Sennosides 8.6 Mg Tablet) 8.6 mg PO BEDTIME PRN PRN Reason: Constipation Tizanidine HCl (Tizanidine Hcl 4 Mg Tablet) 4 mg PO BID PRN PRN Reason: Muscle Spasm Last Admin: 11/10/20 17:49 Dose: 4 mg Documented by: Trazodone HCl (Trazodone Hcl 50 Mg Tablet) 50 mg PO BEDTIME PRN PRN Reason: Insomnia Allergies Allergies Allergy/AdvReac Type Severity Reaction Status Date / Time acetaminophen [From Percocet] Allergy Unknown Verified 10/31/20 06:24 baclofen Allergy Unknown Verified 10/31/20 06:24 oxycodone Allergy Unknown Verified 10/31/20 06:23 Assessment & Plan Assessment & Plan (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 She had a TIA and now it is resolved. Plan Keep same treatment Start discharge planning. continue previous Tx from gei-psych unit Greater than 50% of the session was spent on counseling and/or coordination of care Reason for contiued inpatient stay Substantial Risk for: inability to function, rapid decompensation and med/psych decompensation
--- NOTE | 2020-11-11 14:12 | PC.NURSE ---
Patient is A&O x2, person and time. Patient stated that this is the library . Patient is vague regarding the situation. Patient believes it is all a misunderstanding and the doctor doesn't believe that her son Blair was here because he flew in to check on his mama and left immediately because he had to get back for work . Patient is observed with scattered bruises throughout bilateral upper extremities. Large bruise on lower abdomen is observed as well. Patient stated i believe it was from the heparin shots that i was receiving . Patient denies any pain.
--- NOTE | 2020-11-11 15:03 | MHC.CLN ---
NUTRITION PATIENT EATS A REGULAR DIET AND DOES NOT FOLLOW ANY DIET RESTRICTIONS AT HOME. 11/06/20 HEIGHT=5'3 ; WEIGHT=66 KG; BMI=25.7.
[2020-11-11] MEDS: risperiDONE 1 MG TABLET PO (20:54)
[2020-11-11] MEDS: LORazepam 1 MG TABLET PO (20:54)
[2020-11-11] MEDS: Atorvastatin Calcium 40 MG TABLET PO (20:54)
[2020-11-11 20:58] VITALS: BP 103/52; PULSE 77; RESP 17; TEMP 36.2; O2SAT 96
[2020-11-12 06:00] VITALS: BP 102/52; PULSE 95; RESP 16; TEMP 36.1; O2SAT 97
[2020-11-12] MEDS: Omeprazole 20 MG CAPSULE.DR PO (06:42)
[2020-11-12] MEDS: Loratadine 10 MG TABLET PO (08:26)
[2020-11-12] MEDS: Nortriptyline HCl 10 MG CAPSULE 40 MG PO (08:26)
[2020-11-12] MEDS: Docusate Sodium 100 MG CAPSULE PO (08:28)
[2020-11-12] MEDS: Calcium + Vitamin D 250 MG TABLET 500 MG PO ×3 (08:28→20:47)
[2020-11-12] MEDS: Magnesium Oxide 400 MG TABLET 800 MG PO (08:28)
[2020-11-12] MEDS: Aspirin 81 MG TAB.CHEW PO (08:29)
[2020-11-12] MEDS: PARoxetine HCL 20 MG TABLET PO (08:29)
[2020-11-12 08:37] VITALS: BP 102/55; PULSE 95
[2020-11-12] MEDS: Metoprolol Succinate ER 50 MG TAB.ER.24H PO (08:37)
[2020-11-12] MEDS: TiZANidine HCL 4 MG TABLET PO (15:11)
--- NOTE | 2020-11-12 15:21 | P.PNPSI_ITS ---
Subjective Subjective Date of Service: 11/12/20 Reason For Visit: Mental status change Subjective Notes: Conditional Voluntary Interim History: The patient has been seeing in the unit, cooperative pleasant but confused at times, at baseline. On interview she denies new symptoms she was ready for discharge tomorrow Mental Status Exam Mental Status Exam Patient Appearance: Well Grooomed Patient Orientation: Person Level of Consciousness: Awake Patient Behavior: Cooperative Mood Description: Constricted Affect Description: Calm Patient Cognition Impaired: Yes Ability to Follow Directions: Good Speech Pattern: Appropriate Hallucinations: None Delusions: Not Present Thought Content: positive for Slowed Thinking Judgement: Fair Diagnostics Vital Signs (24Hr): Vital Signs - 24 hr 11/11/20 20:58 11/12/20 06:00 11/12/20 08:37 Temperature 97.2 F 96.9 F Pulse Rate 77 95 95 Respiratory Rate 17 16 Blood Pressure 103/52 L 102/52 L 102/55 L Pulse Oximetry 96 97 Medications Medications Current Medications Al Hydroxide/Mg Hydroxide (Magnesium Hydrox/Alum Hydrox 30 Ml Oral.Susp) 30 ml PO Q6H PRN PRN Reason: Heartburn/Nausea Aspirin (Aspirin 81 Mg Tab.Chew) 81 mg PO DAILY [facility] Last Admin: 11/12/20 08:29 Dose: 81 mg Documented by: Atorvastatin Calcium (Atorvastatin Calcium 40 Mg Tablet) 40 mg PO BEDTIME [facility] Last Admin: 11/11/20 20:54 Dose: 40 mg Documented by: Calcium Carbonate/Cholecalciferol (Calcium + Vitamin D 250 Mg Tablet) 500 mg PO TID [facility] Last Admin: 11/12/20 15:03 Dose: 500 mg Documented by: Docusate Sodium (Docusate Sodium 100 Mg Capsule) 100 mg PO BID [facility] Last Admin: 11/12/20 08:28 Dose: 100 mg Documented by: Hydroxyzine HCl (Hydroxyzine Hcl 25 Mg Tablet) 25 mg PO BEDTIME PRN PRN Reason: Anxiety Loperamide HCl (Loperamide Hcl 2 Mg Capsule) 2 mg PO Q4H PRN PRN Reason: Diarrhea Loratadine (Loratadine 10 Mg Tablet) 10 mg PO DAILY [facility] Last Admin: 11/12/20 08:26 Dose: 10 mg Documented by: Lorazepam (Lorazepam 1 Mg Tablet) 1 mg PO BEDTIME [facility] Last Admin: 11/11/20 20:54 Dose: 1 mg Documented by: Magnesium Hydroxide (Milk Of Magnesia 30 Ml Oral.Susp) 30 ml PO DAILY PRN PRN Reason: Constipation Magnesium Oxide (Magnesium Oxide 400 Mg Tablet) 800 mg PO DAILY [facility] Last Admin: 11/12/20 08:28 Dose: 800 mg Documented by: Melatonin (Melatonin 3 Mg Tablet) 6 mg PO BEDTIME PRN PRN Reason: Insomnia Last Admin: 11/09/20 21:50 Dose: 6 mg Documented by: Metoprolol Succinate (Metoprolol Succinate Er 50 Mg Tab.Er.24h) 50 mg PO DAILY [facility]; Protocol Last Admin: 11/12/20 08:37 Dose: 50 mg Documented by: Nortriptyline HCl (Nortriptyline Hcl 10 Mg Capsule) 40 mg PO DAILY [facility] Last Admin: 11/12/20 08:26 Dose: 40 mg Documented by: Omeprazole (Omeprazole 20 Mg Capsule.Dr) 20 mg PO DAILY@0630 [facility] Last Admin: 11/12/20 06:42 Dose: 20 mg Documented by: Ondansetron HCl (Ondansetron Hcl 4 Mg/2 Ml Vial) 4 mg IVPUSH Q8H PRN PRN Reason: Nausea and Vomiting Paroxetine HCl (Paroxetine Hcl 20 Mg Tablet) 20 mg PO DAILY [facility] Last Admin: 11/12/20 08:29 Dose: 20 mg Documented by: Risperidone (Risperidone 1 Mg Tablet) 1 mg PO BEDTIME [facility] Last Admin: 11/11/20 20:54 Dose: 1 mg Documented by: Senna (Sennosides 8.6 Mg Tablet) 8.6 mg PO BEDTIME PRN PRN Reason: Constipation Tizanidine HCl (Tizanidine Hcl 4 Mg Tablet) 4 mg PO BID PRN PRN Reason: Muscle Spasm Last Admin: 11/12/20 15:11 Dose: 4 mg Documented by: Trazodone HCl (Trazodone Hcl 50 Mg Tablet) 50 mg PO BEDTIME PRN PRN Reason: Insomnia Allergies Allergies Allergy/AdvReac Type Severity Reaction Status Date / Time acetaminophen [From Percocet] Allergy Unknown Verified 10/31/20 06:24 baclofen Allergy Unknown Verified 10/31/20 06:24 oxycodone Allergy Unknown Verified 10/31/20 06:23 Assessment & Plan Assessment & Plan (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 She had a TIA and now it is resolved. Plan Discharge tomorrow Greater than 50% of the session was spent on counseling and/or coordination of care Reason for contiued inpatient stay Substantial Risk for: inability to function, rapid decompensation and med/psych decompensation
[2020-11-12 18:00] VITALS: BP 108/52; PULSE 75; RESP 16; TEMP 36; O2SAT 98
[2020-11-12] MEDS: Atorvastatin Calcium 40 MG TABLET PO (20:46)
[2020-11-12] MEDS: LORazepam 1 MG TABLET PO (20:46)
[2020-11-12] MEDS: risperiDONE 1 MG TABLET PO (20:47)
[2020-11-13] MEDS: Omeprazole 20 MG CAPSULE.DR PO (06:03)
[2020-11-13 08:15] VITALS: BP 144/67; PULSE 86; RESP 18; TEMP 36.4; O2SAT 98
[2020-11-13] MEDS: Nortriptyline HCl 10 MG CAPSULE 40 MG PO (08:22)
[2020-11-13] MEDS: Calcium + Vitamin D 250 MG TABLET 500 MG PO (08:22)
[2020-11-13 08:23] VITALS: BP 144/67; PULSE 86
[2020-11-13] MEDS: Aspirin 81 MG TAB.CHEW PO (08:23)
[2020-11-13] MEDS: Magnesium Oxide 400 MG TABLET 800 MG PO (08:23)
[2020-11-13] MEDS: Metoprolol Succinate ER 50 MG TAB.ER.24H PO (08:23)
[2020-11-13] MEDS: Docusate Sodium 100 MG CAPSULE PO (08:24)
[2020-11-13] MEDS: PARoxetine HCL 20 MG TABLET PO (08:24)
[2020-11-13] MEDS: Loratadine 10 MG TABLET PO (08:24)
--- NOTE | 2020-11-13 09:23 | P.DS_ITS ---
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): Status: Acute DS: Medications Discharge Medications Home Medications: Home Medications Medication Instructions Recorded Confirmed atorvastatin 40 mg tablet 40 mg PO BEDTIME 10/31/20 11/06/20 docusate sodium 100 mg capsule 100 mg PO BID 10/31/20 11/06/20 (Colace) lisinopril 10 mg tablet 10 mg PO DAILY 10/31/20 11/06/20 lorazepam 1 mg tablet 1 mg PO BEDTIME 10/31/20 11/06/20 magnesium oxide 800 mg PO DAILY 10/31/20 11/06/20 metoprolol succinate 50 mg 50 mg PO BID 10/31/20 11/06/20 tablet,extended release 24 hr pantoprazole 40 mg tablet,delayed 40 mg PO DAILY 10/31/20 11/06/20 release paroxetine HCl 40 mg tablet 40 mg PO DAILY 10/31/20 11/06/20 sennosides 8.6 mg tablet (senna) 17.2 mg PO BEDTIME PRN 10/31/20 11/06/20 aspirin 81 mg chewable tablet 81 mg PO DAILY 11/06/20 11/06/20 calcium carbonate 600 mg (1,500 1 tab PO TID 11/06/20 11/06/20 mg)-vitamin D3 400 unit tablet (Calcium 600 + D(3)) cetirizine 10 mg tablet 10 mg PO DAILY 11/06/20 11/06/20 melatonin 5 mg tablet 5 mg PO BEDTIME PRN 11/06/20 11/06/20 nortriptyline 10 mg capsule 40 mg PO DAILY 11/06/20 11/06/20 tizanidine 4 mg tablet 4 mg PO BID PRN 11/06/20 11/06/20 Mental Status Exam Mental Status Exam Patient Appearance: Well Grooomed Patient Orientation: Person Level of Consciousness: Awake Patient Behavior: Appropriate Mood Description: Constricted Affect Description: Calm Patient Cognition Impaired: Yes Ability to Follow Directions: Good Speech Pattern: Clear Memory Description: Intact Hallucinations: None Delusions: Not Present Thought Process: Goal Oriented Thought Content: positive for Circumstantial Judgement: Fair DS: Summary Hospital Course Hospital Course: The patient was transfer from [facility] after she had a vascular event with ataxia and dysarthria, most likely she had a TIA. On readmission, the patient was pleasant and cooperative she did not show any other symptoms that were described on her previous admission. For more details please see HPI. The social worker health services did all the aftercare and she was reengaged with [facility] that she liked very much. Since there were no safety concerns, she did not have any suicidal or homicidal thoughts and her thought process was much better discharge planning was discussed. Time spent discussing smoking cessation with patient: 3 to 10 minutes Status at Discharge Cognitive/behavioral status at discharge: At baseline Functional status at discharge: uses cane/walker Overall status at discharge: patient is back to baseline Time Spent with Patient Time attestation: Total time spent providing and/or coordinating discharge services: Time spent: Less than 30 minutes Discharge Plan Discharge Patient Disposition: Home Health Service Discharge Diagnosis: Mood disorder Referrals: Physician,Unknown J [Primary Care Provider] - 1 Week Discharge Medications: New paroxetine HCl 20 mg Tablet 20 mg PO DAILY Qty: 30 RF: 0 risperidone 1 mg Tablet 1 mg PO BEDTIME 30 Days Qty: 30 RF: 0 Continued lisinopril 10 mg Tablet 10 mg PO DAILY RF: 0 magnesium oxide 400 mg magnesium Tablet 800 mg PO DAILY RF: 0 metoprolol succinate 50 mg Tablet Extended Release 24 Hr 50 mg PO BID RF: 0 pantoprazole 40 mg Tablet,Delayed Release (Dr/Ec) 40 mg PO DAILY RF: 0 docusate sodium [Colace] 100 mg Capsule 100 mg PO BID RF: 0 lorazepam 1 mg Tablet 1 mg PO BEDTIME RF: 0 sennosides [senna] 8.6 mg Tablet 17.2 mg PO BEDTIME PRN (Reason: Constipation) RF: 0 atorvastatin 40 mg Tablet 40 mg PO BEDTIME RF: 0 cetirizine 10 mg Tablet 10 mg PO DAILY RF: 0 tizanidine 4 mg Tablet 4 mg PO BID PRN (Reason: Muscle Spasm) RF: 0 nortriptyline 10 mg Capsule 40 mg PO DAILY RF: 0 aspirin 81 mg Tablet,Chewable 81 mg PO DAILY RF: 0 calcium carbonate-vitamin D3 [Calcium 600 + D(3)] 600 mg(1,500mg) -400 unit Tablet 1 tab PO TID RF: 0 melatonin 5 mg Tablet 5 mg PO BEDTIME PRN (Reason: Insomnia) RF: 0 Discontinued paroxetine HCl 40 mg Tablet 40 mg PO DAILY RF: 0 Discharge Orders: Discharge Order (Routine); Ordered 11/09/20 Ordered By: Wolf Rogers Diet: advance to usual diet Activity on Discharge: As tolerated Stand Alone Forms: Patient Portal Discharge page Care Plan Goals: Already achieved Health Concerns: Continue with PCP Plan of Treatment: Continue medications by outpatient provider Assessment: elderly female with dementia and mood symptoms, stable, ready for discharge with [facility].
--- NOTE | 2020-11-13 10:38 | PC.NURSE ---
Shawna is pleasant and cooperative with discharge today. Shawna is alert and oriented x3, person, place, and time. Shawna was in a cheerful mood with congruent affect. Shawna verbalized I am so excited to get out of here and go home . Patient denies any pain. Patient denies SI/HI/AH/VH. Reports that she is sleeping well and eating well. Patient verbalized an understanding of discharge and discharge instructions, and was in agreement with plan. Patient understood and stated that she was excited with attending the [employer] program. Normal denied medical complaints. Patient left the unit in a wheelchair with a staff member of the [place] program.
== END 2020-11-13 10:05 | disposition home health service (06) | DRG 57 ==
PROVIDERS: Admitting Provider Psychiatry & Neurology Psychiatry; Visit Provider Psychiatry & Neurology Psychiatry
DX: I69.91 Cognitive deficits following unspecified cerebrovascular disease (principal); F06.31 Mood disorder due to known physiological condition with depressive features; Z87.891 Personal history of nicotine dependence; Z88.5 Allergy status to narcotic agent; Z88.6 Allergy status to analgesic agent; Z79.82 Long term (current) use of aspirin; Z79.899 Other long term (current) drug therapy